=== PATIENT | male | born 1945 | race Caucasian/White ===

== ENCOUNTER 2019-04-07 20:56 | Outpatient (REF) | payer MEDICARE, SELFPAY ==
[2019-04-07 20:56] LABS: Abs Immature Grans 0.01 k/cumm (0.0-0.09); Absolute Basophil Count 0.05 k/cumm (0.0-0.2); Absolute Eosinophil Count 0.08 k/cumm (0.0-0.7); Absolute Lymphocyte Count 1.44 k/cumm (1.2-3.4); Absolute Monocyte Count 0.43 k/cumm (0.11-0.7); Absolute Neutrophil Count 2.25 k/cumm (1.2-6.7); Basophils % 1.2; Eosinophils % 1.9; HCT 44.9 % (40.0-50.0); Immature Grans % 0.2; Lymphocytes % 33.8; Mean Corp. HGB Concentration 33.4 g/dL (32.0-36.0); Mean Corpuscular Hemoglobin 31.9 pg (27.0-33.0); Mean Corpuscular Volume 95.5 fL (80-95); Mean Platelet Volume 10.2 fL (8.0-11.0); Monocytes % 10.1; Neutrophils % 52.8; Platelet Count 220 x1000/uL (130-400); RBC Distribution Width 13.4 % (11.8-14.1); White Blood Cell Count 4.26 k/cumm (4.4-10.8)
[2019-04-07 21:13] LABS: ALT 27 U/L (16-63); AST 18 U/L (15-37); Albumin 3.7 g/dL (3.4-5.0); Alkaline Phosphatase 36 U/L (46-116); Anion Gap 6.7 mmol/L (3-11); BUN 17 mg/dL (7-18); Bilirubin, Total 0.6 mg/dL (0.2-1.0); CO2 30.3 mmol/L (21.0-32.0); CREATININE 0.81 mg/dL (0.70-1.30); Calcium 8.7 mg/dL (8.5-10.1); Chloride 105 mmol/L (98-107); Glucose 118 mg/dL (70-100); Lipase 125 U/L (73-393); Potassium 4.2 mmol/L (3.5-5.1); Sodium 142 mmol/L (136-145); TSH (W/Ref FT4) 1.07 uIU/mL (0.36-3.74); Total Protein 6.4 g/dL (6.4-8.2)
== END 2019-04-07 21:16 ==
LOC: NCHCN 20:56
PROVIDERS: PCP Family Medicine; Visit Provider Family Medicine
DX: R19.7 Diarrhea, unspecified (principal)
CPT/HCPCS: 80053; 83690; 84443; 85025

== ENCOUNTER 2020-05-01 09:59 | Outpatient (REF) | payer MEDICARE, SELFPAY ==
[2020-05-02 18:02] LABS: PSA, Screening 3.8 ng/mL (0.0-6.5)
== END 2020-05-01 10:19 ==
LOC: NCHCN 09:59
PROVIDERS: PCP Family Medicine; Visit Provider Nurse Practitioner Community Health
DX: R31.9 Hematuria, unspecified (principal); Z12.5 Encounter for screening for malignant neoplasm of prostate
CPT/HCPCS: 84153; 87086

== ENCOUNTER 2020-07-09 22:42 | Outpatient (REF) | payer MEDICARE, SELFPAY ==
[2020-07-09 22:50] LABS: Anion Gap 5.2 mmol/L (3-11); BUN 17 mg/dL (7-18); CO2 30.8 mmol/L (21.0-32.0); CREATININE 0.91 mg/dL (0.70-1.30); Calcium 8.6 mg/dL (8.5-10.1); Chloride 104 mmol/L (98-107); Glucose 105 mg/dL (74-106); Potassium 4.4 mmol/L (3.5-5.1); Sodium 140 mmol/L (136-145)
== END 2020-07-09 23:02 ==
LOC: NCHCN 22:42
PROVIDERS: PCP Family Medicine; Visit Provider Family Medicine
DX: I10 Essential (primary) hypertension (principal)
CPT/HCPCS: 80048

== ENCOUNTER 2021-01-01 14:34 | Outpatient (REF) | payer MEDICARE, SELFPAY ==
[2021-01-01 21:48] LABS: Abs Immature Grans 0.01 10^3/uL (0.0-0.06); Absolute Basophil Count 0.06 10^3/uL (0.0-0.2); Absolute Lymphocyte Count 2.01 10^3/uL (1.2-3.4); Absolute Monocyte Count 0.55 10^3/uL (0.1-0.8); Absolute Neutrophil Count 3.63 10^3/uL (1.2-6.7); Basophils % 0.9; Eosinophils % 1.6; HCT 44.4 % (40.0-50.0); HGB 14.8 g/dL (13.5-17.5); Immature Grans % 0.2; Lymphocytes % 31.6; MCH 31.8 pg (27.0-33.0); MCHC 33.3 % (32.0-36.0); MCV 95.3 fL (80-95); MPV 10.1 fL (8.0-11.0); Monocytes % 8.6; Neutrophils % 57.1; Nucleated RBC 0 %; Platelet Count 206 10^3/uL (130-400); RBC 4.66 10^6/uL (4.36-5.78); RDW 12.7 % (11.8-14.1); RDW-SD 45.1 fL; WBC 6.36 10^3/uL (4.4-10.8)
[2021-01-01 22:07] LABS: ALT 27 U/L (16-63); AST 23 U/L (15-37); Albumin 3.9 g/dL (3.4-5.0); Alkaline Phosphatase 50 U/L (46-116); Anion Gap 7.2 mmol/L (3-11); BUN 19 mg/dL (7-18); Bilirubin, Total 0.7 mg/dL (0.2-1.0); C-Reactive Protein < 0.05 mg/dL (0.0-0.3); CO2 29.8 mmol/L (21.0-32.0); CREATININE 0.9 mg/dL (0.70-1.30); Calcium 8.8 mg/dL (8.5-10.1); Chloride 103 mmol/L (98-107); Glucose 129 mg/dL (74-106); Potassium 4.1 mmol/L (3.5-5.1); Sodium 140 mmol/L (136-145); TSH (W/Ref FT4) 1.12 uIU/mL (0.36-3.74); Total Protein 6.5 g/dL (6.4-8.2)
[2021-01-02 18:23] LABS: PSA, Screening 3.2 ng/mL (0.0-6.5)
[2021-01-03 09:42] LABS: Hepatitis C Ab w Rflx HCV PCR Negative (Negative)
[2021-01-03 09:54] LABS: HIV-1/2 Ag & Ab Screen Negative (Negative)
== END 2021-01-01 14:35 | disposition home or self-care (01) ==
LOC: NCHCN 14:34
PROVIDERS: PCP Family Medicine; Visit Provider Internal Medicine
DX: R63.4 Abnormal weight loss (principal); N50.9 Disorder of male genital organs, unspecified; D72.819 Decreased white blood cell count, unspecified; R97.20 Elevated prostate specific antigen [PSA]; Z12.5 Encounter for screening for malignant neoplasm of prostate; Z11.4 Encounter for screening for human immunodeficiency virus [HIV]; Z11.59 Encounter for screening for other viral diseases
CPT/HCPCS: 80053; 84153; 86803; 87389; 84443; 85025; 86140

== ENCOUNTER 2021-10-21 15:34 | Outpatient (REF) | payer MEDICARE, SELFPAY ==
--- NOTE | 2021-10-21 10:00 | SKI_PTH ---
PATIENT: Carlos Trimble LOC: NCN #:[id number] AGE/SX: 76/M ROOM: RE10/21/[address]: Nito Cary : 1945 BED: DIS: 10/21/2021 SPEC #: [id number] RECD: 10/22/21 12:15 STATUS: AGUEDA REQ #: [id number] YUNG: 10/21/21 10:[address]: Nito Cary DEPT: Surgical Specimen RECD BY: Layla Simms Tissues: 1 - SKIN BIOPSY(SHAVE/PUNCH) Procedures: SKIN LEVEL 4 Comments: [id number]
== END 2021-10-21 15:35 | disposition home or self-care (01) ==
LOC: NCHCN 15:34
PROVIDERS: PCP Family Medicine; Visit Provider Family Medicine
DX: L82.0 Inflamed seborrheic keratosis (principal)
CPT/HCPCS: 88305

== ENCOUNTER 2021-11-04 17:28 | Outpatient (REF) | payer MEDICARE, SELFPAY ==
[2021-11-05 08:46] LABS: ALT 25 U/L (16-63); AST 21 U/L (15-37); Alkaline Phosphatase 50 U/L (46-116); Anion Gap 6.8 mmol/L (3-11); BUN 20 mg/dL (7-18); Bilirubin, Total 0.6 mg/dL (0.2-1.0); CO2 28.2 mmol/L (21.0-32.0); CREATININE 0.8 mg/dL (0.70-1.30); Calcium 8.8 mg/dL (8.5-10.1); Chloride 102 mmol/L (98-107); Glucose 109 mg/dL (74-106); Potassium 4.4 mmol/L (3.5-5.1); Sodium 137 mmol/L (136-145); Total Protein 6.6 g/dL (6.4-8.2)
[2021-11-06 14:59] LABS: Calculated LDL 118 mg/dL (<100); Cholesterol 218 mg/dL (<200); HDL Cholesterol 87 mg/dL (40-60); Triglyceride 69 mg/dL (<150)
[2021-11-10 13:22] LABS: IgA 144 mg/dL (85-499); Interpretation (See Note); Tissue Transglutaminase IgA <1.2 U/mL (<4.0)
== END 2021-11-04 17:29 | disposition home or self-care (01) ==
LOC: NCHCN 17:28
PROVIDERS: PCP Family Medicine; Visit Provider Family Medicine
DX: I10 Essential (primary) hypertension (principal)
CPT/HCPCS: 80053; 80061; 82784; 83516

== ENCOUNTER 2023-07-08 15:01 | Outpatient (REF) | payer MEDICARE, SELFPAY ==
[2023-07-08 15:43] LABS: FREE T4 0.92 ng/dL (0.76-1.46); TSH 1.48 uIU/mL (0.36-3.74)
== END 2023-07-08 15:02 | disposition home or self-care (01) ==
LOC: NCHCN 15:01
PROVIDERS: PCP Family Medicine; Visit Provider Family Medicine
DX: K59.00 Constipation, unspecified (principal)
CPT/HCPCS: 84439; 84443

== ENCOUNTER → 2023-08-05 13:41 | Outpatient (BNVA) | payer MEDICARE, SELFPAY | PROVIDERS: PCP Family Medicine; Referring Provider Family Medicine; Visit Provider Urology | DX: R31.0 Gross hematuria (principal); N40.2 Nodular prostate without lower urinary tract symptoms; R97.20 Elevated prostate specific antigen [PSA] | CPT/HCPCS: 99205 ==

== ENCOUNTER 2023-09-09 06:25 | Day surgery (SDC) | payer MEDICARE, SELFPAY ==
[2023-09-09 06:35] VITALS: BP 141/85; PULSE 71; RESP 16; TEMP 36.5; O2SAT 100
--- NOTE | 2023-09-09 06:56 | W.PM.HP.N ---
Date of service: 09/09/23 Time of Service: 06:56 Assessment and Plan Assessment and plan (1) Hematuria: Status: Acute Assessment and plan: We will complete his hematuria workup with a cystoscopy and bilateral retrograde pyelogram. We will be prepared to do a transurethral resection of any abnormal area seen in the bladder or prostate. We will also be prepared to do ureteroscopy if there is any abnormality on retrograde pyelogram. Qualifiers: Hematuria type: gross Qualified Code(s): R31.0 - Gross hematuria History of Present Illness History of Present Illness Chief Complaint: Gross Hematuria Narrative: This is a 77-year-old gentleman who has a history of an elevated PSA. He has a reassuring multiparameter prostate MRI. He has never had prostate cancer diagnosed. He has had episodes of gross hematuria and passed a clot at one point. He had a CT of the abdomen and pelvis which showed no significant uropathology. He has had a history of kidney stones and ESWL in the past. We did a urine cytology on him which was concerning for high-grade urothelial cell carcinoma. He presents now for cystoscopy with retrograde pyelogram to complete his hematuria workup. We will be prepared to do transurethral resection of any visible bladder tumor. We will also be prepared to do ureteroscopy should any ureteral abnormality be found on retrograde pyelogram. Review of Systems Narrative: No fevers or chills No vision change or dysphasia No diabetes or thyroid dysfunction No shortness of breath, cough or hemoptysis No chest pain or palpitations GERD. No hepatitis, ulcers, jaundice No seizures, strokes or peripheral neuropathy No bleeding disorders or anemia PMR. No gout PFSH All Active Problems (Updated 08/06/23 @ 07:38 by Yassine Harris MD) Transient cerebral ischemia (Chronic) Constipation (Acute) Elevated BP without diagnosis of hypertension (Acute) Otitis (Chronic) Cough (Acute) Epigastric pain (Acute) GERD (gastroesophageal reflux disease) (Chronic) Nutritional anemia (Acute) Polymyalgia rheumatica (Acute) Hip pain (Acute) Hip stiffness (Acute) Shoulder pain (Acute) Dysphagia (Acute) Headache (Acute) Senile hyperkeratosis (Acute) Spinal stenosis (Acute) Otalgia of left ear (Acute) Cardiac arrhythmia (Acute) Diarrhea (Acute) Anxiety (Chronic) Disorder of skin (Acute) History of infectious disease (Acute) Abnormal weight loss (Acute) Essential hypertension (Acute) Prostate nodule (Acute) Hematuria (Acute) Low back pain (Acute) Abdominal pain (Acute) Disorder of right ear (Acute) Hearing loss in left ear (Acute) Leukopenia (Acute) Tinnitus, left ear (Acute) Elevated PSA (Acute) Erectile dysfunction (Acute) Kidney stone (Chronic) BPH (benign prostatic hyperplasia) (Chronic) Social History Smoking/Tobacco Use Status: Never Smoking risk assessment performed?: Yes Alcohol Intake: current Alcohol Intake frequency: 0-2 drinks per day Alcohol type: wine Substance use type: does not use Housing: house Do you feel safe at home: Yes Do you feel safe in your relationship?: Yes Meds Allergies and Home Medications Allergies Allergy/AdvReac Type Severity Reaction Status Date / Time No Known Allergies Allergy Verified 09/09/23 06:33 Home Medications Medication Instructions Recorded Confirmed Type amlodipine 5 mg tablet 5 mg PO DAILY 08/03/23 09/09/23 History aspirin 81 mg tablet,delayed 81 mg PO DAILY 08/03/23 09/08/23 History release benazepril 5 mg tablet 10 mg PO DAILY 08/03/23 09/09/23 History methocarbamol 500 mg tablet 500 mg PO QHS PRN 08/03/23 09/09/23 History sildenafil 50 mg tablet (Viagra) 50 mg PO DAILY PRN 08/03/23 09/09/23 History prednisone 2.5 mg tablet 2.5 mg PO DAILY 08/05/23 09/09/23 History Exam Const General: cooperative Neck Neck: supple Resp Auscultation: clear to auscultation bilaterally Cardio Rate: regular rate Rhythm: regular rhythm GI Palpation: soft and no masses Neuro General: patient alert, patient awake and patient oriented x3 Results Last Vital Signs Temp 36.5 C 09/09/23 06:35 Pulse 71 09/09/23 06:35 Resp 16 09/09/23 06:35 BP 141/85 H 09/09/23 06:35 Pulse Ox 100 09/09/23 06:35 Time Spent Time spent with Patient: <40 minutes Time was spent: other
--- NOTE | 2023-09-09 06:58 | W.ANESPRE ---
General Info Date of Service Date Performed: 09/09/23 Height: 5 ft 7.5 in Weight: 64.3 kg Body Mass Index (BMI): 21.9 Surgical Procedure: Operation Date: 09/09/23 07:40 Proposed Procedure Side Surgeon p Cystoscopy/Retrograde/Possible Ureteroscopy/Possible Transurethral Resection Bladder Tumor Bilateral Yassine Harris MD Meds Allergies and Home Medications Allergies Allergy/AdvReac Type Severity Reaction Status Date / Time No Known Allergies Allergy Verified 09/09/23 06:33 Home Medication Medication Instructions Recorded amlodipine 5 mg tablet 5 mg PO DAILY 08/03/23 aspirin 81 mg tablet,delayed 81 mg PO DAILY 08/03/23 release benazepril 5 mg tablet 10 mg PO DAILY 08/03/23 methocarbamol 500 mg tablet 500 mg PO QHS PRN 08/03/23 sildenafil 50 mg tablet (Viagra) 50 mg PO DAILY PRN 08/03/23 prednisone 2.5 mg tablet 2.5 mg PO DAILY 08/05/23 Current Visit Medications: Current Medications Generic Name Dose Route Start Last Admin Trade Name Freq PRN Reason Stop Dose Admin Ringer's Solution 1,000 mls @ 80 mls/hr 09/09/23 06:00 IV 10/08/23 23:59 INFUSION LAVINIA Cefazolin Sodium/Dextrose 2 gm in 50 mls @ 100 mls/hr 09/09/23 06:00 Ancef Duplex IVPB 09/09/23 16:00 PREOP LAVINIA IV Miscellaneous Supplies 1 each 09/09/23 06:00 Iv Access IV 10/08/23 23:59 DIRECTED LAVINIA Sodium Chloride 0 ml 09/09/23 06:00 Normal Saline Flush 10 Ml Syr IV 10/08/23 23:59 PRN PRN Sodium Chloride 0 ml 09/09/23 06:00 Normal Saline 10 Ml Vial IJ 10/08/23 23:59 DIRECTED PRN Sterile Water 0 ml 09/09/23 06:00 Water,Injection,Sterile 10 Ml Vial IJ 10/08/23 23:59 DIRECTED PRN PFSH Active Problems Active Problems: Problem Status Onset Code Transient cerebral ischemia G45.9 Constipation K59.00 Elevated BP without diagnosis of hypertension R03.0 Otitis H66.90 Cough R05.9 Epigastric pain R10.13 GERD (gastroesophageal reflux disease) K21.9 Nutritional anemia D53.9 Polymyalgia rheumatica M35.3 Hip pain M25.559 Hip stiffness M25.659 Shoulder pain M25.519 Dysphagia R13.10 Headache R51.9 Senile hyperkeratosis L57.0 Spinal stenosis M48.00 Otalgia of left ear H92.02 Cardiac arrhythmia I49.9 Diarrhea R19.7 Anxiety F41.9 Disorder of skin L98.9 History of infectious disease Z86.19 Abnormal weight loss R63.4 Essential hypertension I10 Prostate nodule N40.2 Hematuria R31.9 Low back pain M54.50 Abdominal pain R10.9 Disorder of right ear H93.91 Hearing loss in left ear H91.92 Leukopenia D72.819 Tinnitus, left ear H93.12 Elevated PSA R97.20 Erectile dysfunction N52.9 Kidney stone N20.0 BPH (benign prostatic hyperplasia) N40.0 Medical History Medical History Comments:: Reviewed previous TIA with Saurabh to proceed Tobacco Smoking/Tobacco Use Status: Never Alcohol Alcohol Intake: current Alcohol intake frequency: 0-2 drinks per day Alcohol type: wine Substance Use Substance use type: does not use Vital Signs and Lab Results Vital Signs Most Recent Vital Signs in EMR: Most Recent Vital Signs Temp Pulse Resp BP Pulse Ox 36.5 C 71 16 141/85 H 100 09/09/23 06:35 09/09/23 06:35 09/09/23 06:35 09/09/23 06:35 09/09/23 06:35 Lab Results Blood Type / Crossmatch: No Data to Display Complete Blood Count: No Data to Display Complete Metabolic Panel: No Data to Display Liver Function Panel: No Data to Display Coagulation Panel: No Data to Display Cardiac Panel: No Data to Display Arterial Blood Gas: No Data to Display Venous Blood Gas: No Data to Display Pancreas Panel: No Data to Display Thyroid Panel: No Data to Display Infectious Disease: No Data to Display Blood Cultures: No Data to Display Toxicology Panel: No Data to Display Anesthesia Assessment and Plan Anesthesia History Personal History: No History of Anesthesia Complications Family History: Family History Unknown Exercise Tolerance Exercise Tolerance: Metabolic Equivalents>4 Pertinent Negatives Pertinent Negatives: No Symptoms of GERD, No Major Cardiovascular Symptoms or Complaints and No Major Pulmonary Symptoms or Complaints Cardiac & Pulmonary Exam Cardiac Exam: Normal S1/S2 Heart Sounds Pulmonary Exam: Clear Bilateral Breath Sounds Implantable Cardiac Device Does patient have a Pacemaker or an ICD?: No Airway Exam Known Difficult Airway: No Mallampati Class: 2 Mouth Opening: Normal (> 3cm) Thyromental Distance: Greater than 3 cm Neck Range of Motion: Full ROM Neck Circumference: Normal Teeth Condition: Normal Dentition ASA Classification ASA Score: ASA 2 Emergency Case?: No NPO Status NPO Status: NPO Clears >2 hours, Solids >8 hours Anesthesia Plan Resuscitation Status: Full Code Anesthesia Technique: General Anesthesia Airway Planned: Natural Airway Monitors Used: Standard Monitors Preoperative Comments:: Recent potential TIA, evaluated by [facility] Neurology. EEG planned: results per patient were normal 2 month followup requested by Neurology: Per patient neuro felt was a focal seizure and will not be able to determine unless occurs again. Patient on prednisone taper: started in march and down to 2.5 mg/day
[2023-09-09] MEDS: Lactated Ringers 1,000 ML 80 ML IV (07:04)
[2023-09-09 07:27] VITALS: BMI 21.9
[2023-09-09] MEDS: ceFAZolin 2 GM/50 ML BAG IVPB (07:48)
[2023-09-09] MEDS: Lidocaine 2% Jelly 11 ML SYR (07:58)
[2023-09-09] MEDS: Omnipaque 300 MG/ML 50 ML BTL (07:59)
--- NOTE | 2023-09-09 08:13 | ROE_ITS ---
Date of service: 09/09/23 Time of Service: 08:13 Operative Note Operative Note DATE OF PROCEDURE: 09/09/23 PRE-OP DIAGNOSIS: Gross hematuria POST-OP DIAGNOSIS: same abnormal voided urine cytology PROCEDURE: cystoscopy with bilateral retrograde pyelogram SURGEON: Yassine Harris ANESTHESIA TYPE: Local By Surgeon and General:No Airway Refer to Anesthesia Record ESTIMATED BLOOD LOSS: 5 PATHOLOGY: none sent COMPLICATIONS: None Patient was transported to: same day Patient's condition: stable Implants: none Indications: This is a 77-year-old gentleman who has a history of gross hematuria. He has a history of kidney stones, any suspected that the hematuria was related to pass age of a stone. His evaluation has included a CT of the abdomen and pelvis with contrast. No significant uropathology was identified. He did have an abnormal voided urine cytology. He presents for cystoscopy with bilateral retrograde pyelogram and possible ureteroscopy, possible transurethral resection of any visible bladder tumor Findings: Heavily trabeculated bladder with multiple diverticuli and cellules No papillary or nodular bladder masses No ureteral or renal pelvic masses Procedure Description: The patient was given preoperative IV antibiotics and brought to the operating room on 09/09/2023. After successful induction of general anesthesia, he was placed in the dorsal lithotomy position. His genitalia was prepped and draped. 2% Xylocaine jelly was instilled into the urethra to act as a local anesthetic. A 22 Mongolian rigid cystoscope was passed through the urethra into the bladder. The urethra and bladder were inspected with a 30 degree lens. The pendulous, bulbar and membranous urethra's appeared normal with no strictures. The prostatic urethra showed lateral lobe enlargement. There was some hyperemia of the urethral mucosa just distal to the external sphincter. The bladder neck was entered and the bladder mucosa was inspected. Both ureteral orifices were visualized. The orifices appeared normal with no blood coming from either side. Each orifice was cannulated with a 5 Mongolian access catheter. Retrograde pyelograms were obtained by injecting Omnipaque through the access catheter under fluoroscopic guidance. The ureters were tortuous but there were no filling defects present on either side. Both sides drained promptly on a 5-minute drainage film. The bladder was then inspected with both the 30 and a 70 degree lens. No papillary or nodular lesions were identified. There were multiple bladder diverticuli and cellules present and the bladder was heavily trabeculated. Based on today's examination, the most likely source of his hematuria is the prostatic urethra and there were no mucosal-based abnormalities seen. We will plan to follow with urinalysis and symptom checks. The bladder was emptied and the cystoscope was withdrawn. The patient tolerated the procedure well with no complications.
--- NOTE | 2023-09-09 08:16 | W.PM.DSUDISC ---
Date of service: 09/09/23 Time of Service: 08:16 Discharge Plan Disposition Patient Disposition: Home Condition: Stable Discharge Details Reason For Visit: cystoscopy Attending Provider: Yassine Harris Primary Care Provider: Nito Cary Home Meds and New Rx's Prescriptions: No Action prednisone 2.5 mg tablet 2.5 mg PO DAILY methocarbamol 500 mg tablet 500 mg PO QHS PRN benazepril 5 mg tablet 10 mg PO DAILY amlodipine 5 mg tablet 5 mg PO DAILY sildenafil [Viagra] 50 mg tablet 50 mg PO DAILY PRN Rx Instructions: administer 30 minutes to 4 hours before activity aspirin 81 mg tablet,delayed release (DR/EC) 81 mg PO DAILY Discharge Instructions Additional Instructions: followup @ 3 months with PSA prior to visit (can be drawn at [facility] [place] [facility] if easier for patient) Activity:: Activity as Tolerated Shower/Bathe:: 24 hours Diet:: As Tolerated Discharge Orders Discharge Orders: Discharge Order (Routine); Ordered 09/09/23 Ordered By: Yassine Harris DS: Diagnosis Discharge Diagnosis (1) Hematuria: Status: Acute
[2023-09-09 08:20] VITALS: BP 99/65; PULSE 63; RESP 16; TEMP 36.3; O2SAT 98
--- NOTE | 2023-09-09 08:25 | DI.RAD_ITS ---
Exam(s) XR RETROGRADE IN OR EXAM: XR RETROGRADE IN OR CLINICAL HISTORY: Heamaturia and prostate nodule.. TECHNIQUE: 2D digital imaging was performed. COMPARISON: No exams were available for comparison FINDINGS: Fluoroscopy provided during urologic procedure. See procedure report for details Total fluoroscopy time 27.6 seconds IMPRESSION: Radiation exposure index/cumulative dose: edgar Olivera= 3.1605 mGy DATA REPOSITORY: RADIATION DOSE DELIVERED:
--- NOTE | 2023-09-09 08:46 | W.ANESPOSTOP ---
Postoperative Evaluation Date, Time and Location Date Performed: 09/09/23 Time Performed: 08:22 Patient Location: Day Surgery Unit Vital Signs Most Recent Imported Vital Signs: Most Recent Vital Signs Temp Pulse Resp BP Pulse Ox 36.3 C L 63 16 99/65 L 98 09/09/23 08:20 09/09/23 08:20 09/09/23 08:20 09/09/23 08:20 09/09/23 08:20 Pain Score Most Recent Pain Score: Most Recent Pain Score Pain Level 0 09/09/23 08:20 Assessment Mental Status: Awake (Alert & Oriented to Patient Baseline) Airway and Respiratory Function: Patent airway with normal (patient baseline) respiratory exam Cardiovascular Function: Hemodynamically Stable Hydration Status: Adequately Hydrated Nausea & Vomiting: No Nausea or Vomiting Pain: Pt. Denies Any Pain Peripheral Nerve Block: Patient did not receive a nerve block
[2023-09-09 08:57] VITALS: BP 115/68; PULSE 78; RESP 16; TEMP 36.6; O2SAT 98
[2023-09-09] MEDS: Phenazopyridine 200 MG TAB PO (09:19)
== END 2023-09-09 10:00 | disposition home or self-care (01) ==
PROVIDERS: PCP Family Medicine; Visit Provider Urology
PROC: 0TBB8ZZ Excision of Bladder, Via Natural or Artificial Opening Endoscopic (ICD-10-PCS; CPT 52005; principal; 2023-09-09 07:30)
DX: R31.0 Gross hematuria (principal); N32.89 Other specified disorders of bladder; Z87.442 Personal history of urinary calculi
CPT/HCPCS: 52005; 27447; 74420; J0690; J2704; Q9967

== ENCOUNTER 2024-08-03 13:48 | Outpatient (REF) | payer MEDICARE, SELFPAY ==
--- OUTSIDE RECORDS SUMMARY | 2024-08-03 13:50 | XMS_ITS ---
Author Organization Unknown Address [address] [place] [phone] Phone Care Team Providers Care Supervisor Maintenance And Custodians Name Role Phone DECLAN TA Registered Nurse Unavailable JENNIFER Mccullough Attending Unavailable ALFONSO KING Unavailable DEV Anderson Primary Unavailable UNLISTED PROVIDER - REQUESTED Xhandoff Un available Results MR LS SPINE WO CONTRAST - Co mpleted: 07/10/2022 15:36 LOINC: [place], [place] [address] PACS CURRENCY COUNTER REPORT Patient Name: BARBY FLORENTINO MRN: Sex: : Age: [id number] M 1945 [id number] Account: Accession: Admit: StayType: [id number] 07/10/2022 E/R Ordered: Order ID: Submitted: Ordering Provider: 07/10/2022 14:09 [id number] JAILENE DURHAM Completed: Technologist: Resulted: 07/10/2022 15:36 DRS 07/10/2022 16:06 Study Description: MR LS SPINE WO CONTRAST Study Reason: Back Pain TECHNIQUE: Multiplanar multisequence MRI of the Lumbar spine was performed. COMPARISON: There are no plain films available at time of this MRI interpretation. FINDINGS: 5 lumbar vertebrae are presumed. Conus medullaris is at normal level. There is no evidence of conus mass nor subjacent clumping of intrathecal nerve roots to suggest arachnoiditis. The distal thecal sac appears unremarkable.There is no evidence of Tarlov intrasacral cysts nor other significant findings within the sacral canal Bones:There are no fractures nor ominous osseous lesions in the lumbar vertebral bodies and visualized sacrum. With respect to the individual levels... T12-L1: Unremarkable L1-2: Normal disc height and signal. No disc herniation nor central canal stenosis.No foraminal stenosis L2-3: Normal disc height. Mild annular bulging but without a dominant disc herniation. Central canal dimensions[lower normal. No significant foraminal stenosis. No significant facet arthropathy. L3-4: There is mild decreased disc height on the right side of the disc space. There is symmetrical annular bulging without a dominant disc herniation. Mild-moderate central spinal canal stenosis due to annular bulging and short AP dimensions of the pedicles. No prominent foraminal stenosis. Mild facet joint degenerative changes. L4-5: This level exhibits significant asymmetric narrowing of the right side of the disc space with Modic type II subendplate fatty marrow changes on the right side also evident. There is broad annular bulging with moderate-severe central spinal canal stenosis. Annular bulging extends into the floor of the exiting neuroforamina bilaterally. There is significant foraminal stenosis on the right side and mild foraminal stenosis on the left side. Mild-moderate facet arthropathy. L5-S1: Mild uniform disc space narrowing. Posterior annular bulging which is subligamentous. Central canal dimensions are lower normal. No significant foraminal stenosis. Mild facet arthropathy. Soft tissues: paraspinal soft tissues appear unremarkable. IMPRESSION: 1. Multilevel findings as described above. The most significant findings appear to be at L4-5 level where there is moderate central spinal canal stenosis due to annular bulging and short AP dimensions of pedicles and some facet arthropathy. There is also foraminal stenosis bilaterally at this level, more so on the right side as there is asymmetric right-sided disc space height loss. 2. Other findings as above. Called by myself to ER provider. Report Digitally Signed by Barry Tom on 07/10/2022 04:06 PM EST 07/10/[email or web address] [facility] via fax Social History Type Status Start Date End Date Code Code Syst em Smoking History Never smoker (Never Smoked) 457840737 SNOMED CT Sex Male Vital Signs Vital Sign Value Unit [facility] Date/Time Recent/Initial? Code Code System Systolic Blood Pressure 135 mm[Hg] 07/10/2022 13:27 Initial 8480-6 [facility] Diastolic Blood Pressure 72 mm[Hg] 07/10/2022 13:27 Initial 8462-4 [facility] O2 Saturation 100 % 2021 13:27 Initial 00205- 5 [facility] Pulse 66.0 /min 07/10/2022 13:27 Initial 8867-4 LO[facility] Respiration 16 /min 07/10/20 13:27 Initial 9279-1 LO[facility] Temperature 36.8 Kimberly 98.2 F 07/10/20 13:27 Initial 8310-5 [facility] Medications Medication Start Date End Date Route Frequency Dose Code Code System Medication Instructions Home Meds Robaxin 500MG Oral Tablet 07/10/2022 06/23/2023 ORAL DAILY 1 TABLET RxNorm TAKE 1 TABLET ORAL DAILY every 6 hours for muscle spasms HYDROcodone bitartrate-ac etaminophen 5MG-325MG Oral Tablet 07/10/2022 06/23/2023 ORAL NEEDED EVERY 6 HOURS 1 TABLET 153195 RxNorm TAKE 1 TABLET ORAL NEEDED EVERY 6 HOURS-if taking hydrocodone , take 2 hours before or after. predniSONE 20MG Oral Tablet 07/10/2022 06/23/2023 ORAL DAILY 2 TABLET 365160 RxNorm TAKE 2 TABLET ORAL DAILY starting 07/11/2022 for the next 4 days. Aspirin 81MG Oral Tablet, Enteric Coated 06/24/2023 Unknown ORAL DAILY WITH FOOD 81 MILLIGRAMS [id number] RxNorm TAKE 81 MILLIGRAMS ORAL DAILY WITH FOOD Benazepril 10MG Oral Tablet 06/24/2023 Unknown ORAL DAILY 10 MILLIGRAMS 963279 RxNorm TAKE 10 MILLIGRAMS ORAL DAILY amLODIPine Besylate 5MG Oral Tablet 06/24/2023 Unknown ORAL DAILY 5 MILLIGRAMS [id number] RxNorm TAKE 5 MILLIGRAMS ORAL DAILY predniSONE 5MG Oral Tablet 06/24/2023 Unknown ORAL 5 MILLIGRAMS 228890 RxNorm TAKE 5 MILLIGRAMS ORAL Assessment You had the following problems:HYPERTENSIONWEAKNESS OF RIGHT HANDTRANSIENT ISCHEMIC ATTACK (DISORDER) Hospital Discharge Instructions Should you have any questions prior to discharge, please contact a member of your healthcare team. If you have left the hospital and have any questions, please contact your primary care physician. Reason For Referral No Data Found Problems Problem Start Date Resolved Date Status Code Code System HYPERTENSION active 66078067 SNOMED- CT WEAKNESS OF RIGHT HAND active 16209936380748109 SNOMED-CT TRANSIENT ISCHEMIC ATTACK (DISORDER) active 867938641 SNOMED-CT DEGENERATIVE DISC DISEASE 06/23/2023 resolved 06420462 SNOMED-CT POLYMYALGIA RHEUMATICA 06/23/2023 resolved 74277360 SNOMED-CT Allergies and Adverse Reactions Allergy Substance Reaction Severity Start Date Concern Status Co de Code System No Known Drug Allergies Active 228222277 SNOMED-CT Plan of Treatment EEG 07/14/2023 LAB DRAW 15MIN 05/20/2023 MRA HEAD W/O CONTRAST 09/16/2022 MRI C SPINE W/O CONTRAST 09/16/2022 MRI BRAIN W/O CONTRAST 09/16/2022 Encounters Encounter Diagnosis Start Date Code Code Sys tem Spinal stenosis, lumbar prashanth on without neurogenic claudication 07/10/2022 SNOMED-CT Personal Care Team Section Performer Name Performer Role Active Date Inactive Da wagner
--- OUTSIDE RECORDS SUMMARY | 2024-08-03 13:50 | XMS_ITS ---
Author Organization Unknown Address [address] [place] [phone] Phone Care Team Providers Care Horseshoer Name Role Phone LALO Kim Attending Unavailable DEV Anderson Primary Unavailable Social History Type Status Start Date End Date Code Code Syst em Smoking History Never smoker (Never Smoked) 364271332 SNOMED CT Sex Male Medications Medication Start Date End Date Route Frequency Dose Code Code System Medication Instructions Home Meds Robaxin 500MG Oral Tablet 07/10/2022 06/23/2023 ORAL DAILY 1 TABLET RxNorm TAKE 1 TABLET ORAL DAILY every 6 hours for muscle spasms HYDROcodone bitartrate-ac etaminophen 5MG-325MG Oral Tablet 07/10/2022 06/23/2023 ORAL NEEDED EVERY 6 HOURS 1 TABLET [id number] RxNorm TAKE 1 TABLET ORAL NEEDED EVERY 6 HOURS-if taking hydrocodone , take 2 hours before or after. predniSONE 20MG Oral Tablet 07/10/2022 06/23/2023 ORAL DAILY 2 TABLET 132406 RxNorm TAKE 2 TABLET ORAL DAILY starting 07/11/2022 for the next 4 days. Aspirin 81MG Oral Tablet, Enteric Coated 06/24/2023 Unknown ORAL DAILY WITH FOOD 81 MILLIGRAMS 326125 RxNorm TAKE 81 MILLIGRAMS ORAL DAILY WITH FOOD Benazepril 10MG Oral Tablet 06/24/2023 Unknown ORAL DAILY 10 MILLIGRAMS 364746 RxNorm TAKE 10 MILLIGRAMS ORAL DAILY amLODIPine Besylate 5MG Oral Tablet 06/24/2023 Unknown ORAL DAILY 5 MILLIGRAMS 928633 RxNorm TAKE 5 MILLIGRAMS ORAL DAILY predniSONE 5MG Oral Tablet 06/24/2023 Unknown ORAL 5 MILLIGRAMS 291199 RxNorm TAKE 5 MILLIGRAMS ORAL Assessment You [...] Date Status Code Code System HYPERTENSION active 43870771 SNOMED- CT WEAKNESS OF RIGHT HAND active 56681169585466910 SNOMED-CT TRANSIENT ISCHEMIC ATTACK (DISORDER) active 980080467 SNOMED-CT DEGENERATIVE DISC DISEASE 06/23/2023 resolved 15500059 SNOMED-CT POLYMYALGIA RHEUMATICA 06/23/2023 resolved 21966376 SNOMED-CT Allergies and Adverse Reactions Allergy Substance Reaction Severity Start Date Concern Status Co de Code System No Known Drug Allergies Active 907471098 SNOMED-CT Plan of Treatment EEG 07/14/2023 LAB DRAW 15MIN 05/20/2023 MRA HEAD W/O CONTRAST 09/16/2022 MRI C SPINE W/O CONTRAST 09/16/2022 MRI BRAIN W/O CONTRAST 09/16/2022 Encounters Encounter Diagnosis Start Date Code Code Sys tem Supraventricular tachycardia 01/19/2022 SNOMED-CT Personal Care Team Section Performer Name Performer Role Active Date Inactive Da te
--- OUTSIDE RECORDS SUMMARY | 2024-08-03 13:51 | XMS_ITS ---
Author Organization Unknown Address [address] [place] [address] [phone] Phone Care Team Providers Care Cereal Miller Name Role Phone DEV Anderson Attending Unavailable Results MR ANGIOGRAPHY HEAD AND NECK WO CONTRST* - Completed: 09/16/2022 15:43 LOINC: [facility] [place], [place] [address] PACS MVA OPERATOR REPORT Patient Name: BARBY FLORENTINO MRN: Sex: : Age: [id number] M 1945 [id number] Account: Accession: Admit: StayType: [id number] 09/16/2022 O/P Ordered: Order ID: Submitted: Ordering Provider: 09/16/2022 13:57 [id number] HERMES BLANC Completed: Technologist: Resulted: 09/16/2022 15:43 DRS 09/16/2022 17:48 Study Description: MR ANGIOGRAPHY HEAD AND NECK WO CONTRST* Study Reason: HEADACHES, NECK PAIN TECHNIQUE: Performed on 1.5 Tressa unit with Time of Flight sequence CONTRAST: None COMPARISON: No exams were available for comparison FINDINGS: MRA brain: Anterior circulation: Both internal carotid arteries are patent at the skull base-carotid canal and cavernous sinuses. The intracavernous aspects of the internal carotid arteries are patent bilaterally. Supraclinoid aspects are patent bilaterally. A1 segments are patent as are the anterior cerebral arteries. There is no evidence of aneurysm at the level of the anterior communicating artery. Both middle cerebral arteries are patent. No significant stenosis nor aneurysms in these vessels. No intraluminal thrombus. Posterior circulation: Basilar artery is formed but both vertebral arteries at the skull base. Basilar artery ascends in the midline with normal luminal diameter. Distally gives off superior cerebellar arteries and above this level terminates as patent bilateral posterior cerebral arteries. There is a posterior communicating artery noted on the left side of the benton of Harris which adds flow to the left posterior cerebral artery. Luminal diameter of this left-sided posterior communicating artery is 1.5 mm There is no aneurysm the tip of the basilar artery nor elsewhere in the benton of Harris. MRA neck: Common carotid arteries ascend with normal luminal diameters. There is no significant stenosis at the carotid bifurcations and proximal internal carotid arteries. Both internal carotid arteries exhibit normal diameters and known tortuosity in the upper neck. Posterior circulation: Vertebral arteries are patent and originate in conventional fashion off of the subclavian arteries. Both vertebral arteries are patent in the foramen transversarium with no evidence of intraluminal thrombus nor dissection. At the skull base both vertebral arteries contribute to the formation of the basilar artery. IMPRESSION: 1. Patent carotid arteries in the neck. No significant stenosis of the carotid arteries in the neck. 2. Patent vertebral arteries. Both vertebral arteries contribute to the formation of the basilar artery at the skull base. 3. Patent intracranial artery, as described above. No aneurysms. Report Digitally Signed by Barry Tom on 09/16/2022 05:48 PM EST MR BRAIN AND CSPINE WO CONTR AST - Completed: 09/16/2022 15:07 LOINC: [No content] Social History Type Status Start Date End Date Code Code Syst em Smoking History Never smoker (Never Smoked) 680183039 SNOMED CT Sex Male Medications Medication Start Date End Date Route Frequency Dose Code Code System Medication Instructions Home Meds Robaxin 500MG Oral Tablet 07/10/2022 06/23/2023 ORAL DAILY 1 TABLET RxNorm TAKE 1 TABLET ORAL DAILY every 6 hours for muscle spasms HYDROcodone bitartrate-ac etaminophen 5MG-325MG Oral Tablet 07/10/2022 06/23/2023 ORAL NEEDED EVERY 6 HOURS 1 TABLET [id number] RxNorm TAKE 1 TABLET ORAL NEEDED EVERY 6 HOURS-if taking hydrocodone , take 2 hours before or after. predniSONE 20MG Oral Tablet 07/10/2022 06/23/2023 ORAL DAILY 2 TABLET 187360 RxNorm TAKE 2 TABLET ORAL DAILY starting 07/11/2022 for the next 4 days. Aspirin 81MG Oral Tablet, Enteric Coated 06/24/2023 Unknown ORAL DAILY WITH FOOD 81 MILLIGRAMS 402054 RxNorm TAKE 81 MILLIGRAMS ORAL DAILY WITH FOOD Benazepril 10MG Oral Tablet 06/24/2023 Unknown ORAL DAILY 10 MILLIGRAMS 071013 RxNorm TAKE 10 MILLIGRAMS ORAL DAILY amLODIPine Besylate 5MG Oral Tablet 06/24/2023 Unknown ORAL DAILY 5 MILLIGRAMS 376095 RxNorm TAKE 5 MILLIGRAMS ORAL DAILY predniSONE 5MG Oral Tablet 06/24/2023 Unknown ORAL 5 MILLIGRAMS 835235 RxNorm TAKE 5 MILLIGRAMS ORAL Assessment You [...] Date Status Code Code System HYPERTENSION active 29921670 SNOMED- CT WEAKNESS OF RIGHT HAND active 50948673191990627 SNOMED-CT TRANSIENT ISCHEMIC ATTACK (DISORDER) active 472245395 SNOMED-CT DEGENERATIVE DISC DISEASE 06/23/2023 resolved 10183624 SNOMED-CT POLYMYALGIA RHEUMATICA 06/23/2023 resolved 16443041 SNOMED-CT Allergies and Adverse Reactions Allergy Substance Reaction Severity Start Date Concern Status Co de Code System No Known Drug Allergies Active 259876539 SNOMED-CT Plan of Treatment EEG 07/14/2023 LAB DRAW 15MIN 05/20/2023 MRA HEAD W/O CONTRAST 09/16/2022 MRI C SPINE W/O CONTRAST 09/16/2022 MRI BRAIN W/O CONTRAST 09/16/2022 Encounters Encounter Diagnosis Start Date Code Code Sys tem Spinal stenosis, cervical region 09/16/2022 SNOMED-CT Personal Care Team Section Performer Name Performer Role Active Date Inactive Da te
--- OUTSIDE RECORDS SUMMARY | 2024-08-03 13:51 | XMS_ITS ---
Author Organization Unknown Address [address] [place] [address] [phone] Phone Care Team Providers Care Real Estate Executive Assistant Name Role Phone DEV Anderson Attending Unavailable Social History Type Status Start Date End Date Code Code Syst em Smoking History Never smoker (Never Smoked) 391046299 SNOMED CT Sex Male Medications Medication Start Date End Date Route Frequency Dose Code Code System Medication Instructions Home Meds Robaxin 500MG Oral Tablet 07/10/2022 06/23/2023 ORAL DAILY 1 TABLET RxNorm TAKE 1 TABLET ORAL DAILY every 6 hours for muscle spasms HYDROcodone bitartrate-ac etaminophen 5MG-325MG Oral Tablet 07/10/2022 06/23/2023 ORAL NEEDED EVERY 6 HOURS 1 TABLET 996677 RxNorm TAKE 1 TABLET ORAL NEEDED EVERY 6 HOURS-if taking hydrocodone , take 2 hours before or after. predniSONE 20MG Oral Tablet 07/10/2022 06/23/2023 ORAL DAILY 2 TABLET 464058 RxNorm TAKE 2 TABLET ORAL DAILY starting 07/11/2022 for the next 4 days. Aspirin 81MG Oral Tablet, Enteric Coated 06/24/2023 Unknown ORAL DAILY WITH FOOD 81 MILLIGRAMS 816818 RxNorm TAKE 81 MILLIGRAMS ORAL DAILY WITH FOOD Benazepril 10MG Oral Tablet 06/24/2023 Unknown ORAL DAILY 10 MILLIGRAMS 618146 RxNorm TAKE 10 MILLIGRAMS ORAL DAILY amLODIPine Besylate 5MG Oral Tablet 06/24/2023 Unknown ORAL DAILY 5 MILLIGRAMS 168089 RxNorm TAKE 5 MILLIGRAMS ORAL DAILY predniSONE 5MG Oral Tablet 06/24/2023 Unknown ORAL 5 MILLIGRAMS 851079 RxNorm TAKE 5 MILLIGRAMS ORAL Assessment You [...] Date Status Code Code System HYPERTENSION active 97177653 SNOMED- CT WEAKNESS OF RIGHT HAND active 84018985111133527 SNOMED-CT TRANSIENT ISCHEMIC ATTACK (DISORDER) active 820967947 SNOMED-CT DEGENERATIVE DISC DISEASE 06/23/2023 resolved 66683700 SNOMED-CT POLYMYALGIA RHEUMATICA 06/23/2023 resolved 88845499 SNOMED-CT Allergies and Adverse Reactions Allergy Substance Reaction Severity Start Date Concern Status Co de Code System No Known Drug Allergies Active 096741183 SNOMED-CT Plan of Treatment EEG 07/14/2023 LAB DRAW 15MIN 05/20/2023 MRA HEAD W/O CONTRAST 09/16/2022 MRI C SPINE W/O CONTRAST 09/16/2022 MRI BRAIN W/O CONTRAST 09/16/2022 Encounters Encounter Diagnosis Start Date Code Code Sys tem Other low back pain 09/08/2022 SNOMED-C T Personal Care Team Section Performer Name Performer Role Active Date Inactive Da te
--- OUTSIDE RECORDS SUMMARY | 2024-08-03 13:51 | XMS_ITS ---
Author Organization Unknown Address [address] [place] [address] [phone] Phone Care Team Providers Care Cutter Grinder Name Role Phone DEV Anderson Attending Unavailable Results PSA DIAG PROSTATE SPECIFIC A NTIGEN * - Collect Date/Time: 01/12/2023 08:50 [facility] ID: [id number] [address] [place] [address], [address] LOINC: 2857-1 Test Value Unit Reference Range Code Code System Flag PSA 10.23 ng/mL L=0.00 H=6.50 2857-1 LOINC H Social History Type Status Start Date End Date Code Code Syst em Smoking History Never smoker (Never Smoked) 895453867 SNOMED CT Sex Male Medications Medication Start Date End Date Route Frequency Dose Code Code System Medication Instructions Home Meds Robaxin 500MG Oral Tablet 07/10/2022 06/23/2023 ORAL DAILY 1 TABLET RxNorm TAKE 1 TABLET ORAL DAILY every 6 hours for muscle spasms HYDROcodone bitartrate-ac etaminophen 5MG-325MG Oral Tablet 07/10/2022 06/23/2023 ORAL NEEDED EVERY 6 HOURS 1 TABLET 652987 RxNorm TAKE 1 TABLET ORAL NEEDED EVERY 6 HOURS-if taking hydrocodone , take 2 hours before or after. predniSONE 20MG Oral Tablet 07/10/2022 06/23/2023 ORAL DAILY 2 TABLET 643762 RxNorm TAKE 2 TABLET ORAL DAILY starting 07/11/2022 for the next 4 days. Aspirin 81MG Oral Tablet, Enteric Coated 06/24/2023 Unknown ORAL DAILY WITH FOOD 81 MILLIGRAMS 150935 RxNorm TAKE 81 MILLIGRAMS ORAL DAILY WITH FOOD Benazepril 10MG Oral Tablet 06/24/2023 Unknown ORAL DAILY 10 MILLIGRAMS 192271 RxNorm TAKE 10 MILLIGRAMS ORAL DAILY amLODIPine Besylate 5MG Oral Tablet 06/24/2023 Unknown ORAL DAILY 5 MILLIGRAMS 097229 RxNorm TAKE 5 MILLIGRAMS ORAL DAILY predniSONE 5MG Oral Tablet 06/24/2023 Unknown ORAL 5 MILLIGRAMS 511039 RxNorm TAKE 5 MILLIGRAMS ORAL Assessment You [...] Date Status Code Code System HYPERTENSION active 55011456 SNOMED- CT WEAKNESS OF RIGHT HAND active 92421508490841020 SNOMED-CT TRANSIENT ISCHEMIC ATTACK (DISORDER) active 457089153 SNOMED-CT DEGENERATIVE DISC DISEASE 06/23/2023 resolved 84772823 SNOMED-CT POLYMYALGIA RHEUMATICA 06/23/2023 resolved 56532219 SNOMED-CT Allergies and Adverse Reactions Allergy Substance Reaction Severity Start Date Concern Status Co de Code System No Known Drug Allergies Active 612719311 SNOMED-CT Plan of Treatment EEG 07/14/2023 LAB DRAW 15MIN 05/20/2023 MRA HEAD W/O CONTRAST 09/16/2022 MRI C SPINE W/O CONTRAST 09/16/2022 MRI BRAIN W/O CONTRAST 09/16/2022 Encounters Encounter Diagnosis Start Date Code Code Sys tem Raised prostate specific antigen 01/12/2023 47163241 5 SNOMED-CT Personal Care Team Section Performer Name Performer Role Active Date Inactive Da wagner
--- OUTSIDE RECORDS SUMMARY | 2024-08-03 13:51 | XMS_ITS ---
Author Organization Unknown Address [address] [place] [address] [phone] Phone Care Team Providers Care Labor Relations Director Name Role Phone DEV Anderson Attending Unavailable Results CPK SERUM TOTAL* - Collect D ate/Time: 10/28/2022 15:38 ID: [id number] [address] [place] [address], [address] LOINC: 2157-6 Test Value Unit Reference Range Code Code System Flag CPK 76 U/L L=0 H=150 2157-6 LOINC Specimen seq. OTHER HEMOGRAM + PLATELET WO DIFF - Collect Date/Time: 10/28/2022 15:38 ID: [id number] [address] [place] [address], [phone] LOINC: 75164-1 Test Value Unit Reference Range Code Code System Flag WBC 5.18 th/cmm L=5.00 H=10.00 6690-2 LOINC NRBC % 0.0 % L=0.0 H=0.0 94894-4 LOINC NRBC abs count 0.0 mil/cmm L=0.0 H=0.0 70129-5 LOINC RBC 4.45 mil/cmm L=4.30 H=6.20 789-8 LOINC HEMOGLOBIN 13.9 gm/dL L=13.0 H=17.0 718-7 LOINC HEMATOCRIT 43 % L=45 H=52 4544-3 LOINC L MCV 96 fL L=82 H=92 787-2 LOINC H MCH 31.2 pg L=27.0 H=31.0 785-6 LOINC H MCHC 32.5 % L=32.0 H=36.0 786-4 LOINC RDW-SD 44.5 fL L=39.0 H=49.0 788-0 LOINC PLATELET COUNT 295 th/cmm L=150 H=450 777-3 LOINC SED RATE* - Collect Date/Zeeshan e: 10/28/2022 15:38 ID: [id number] [address] [place] [address], [address] LOINC: 4537-7 Test Value Unit Reference Range Code Code System Flag SED. RATE 10 mm/hr L=0 H=20 4537-7 LOINC PSA DIAG PROSTATE SPECIFIC A NTIGEN * - Collect Date/Time: 10/28/2022 15:38 ID: [id number] [address] [place] [address], [address] LOINC: 2857-1 Test Value Unit Reference Range Code Code System Flag PSA 6.98 ng/mL L=0.00 H=6.50 2857-1 LOINC H C REACTIVE PROTEIN HIGH SENS ITIVITY* - Collect Date/Time: 10/28/2022 15:38 ID: [id number] [address] [place] [address], [address] LOINC: 97787-4 Test Value Unit Reference Range Code Code System Flag CRP-HIGH SENS. 12.78 mg/L L=0.00 H=3.00 71586-0 LOINC H CRP-HIGH SENS 1.28 mg/dL L=0.00 H=0.30 90465-8 LOINC H BASIC METABOLIC PANEL (BMP) - Collect Date/Time: 10/28/2022 15:38 ID: [id number] [address] [place] [address], [address] LOINC: 33599-9 Test Value Unit Reference Range Code Code System Flag GLUCOSE 105 mg/dL L=70 H=116 2345-7 LOINC BUN 19 mg/dL L=6 H=25 3094-0 LOINC CREATININE 0.78 mg/dL L=0.67 H=1.17 2160-0 LOINC SODIUM SERUM 139 mmol/L L=136 H=145 2951-2 LOINC POTASSIUM SERUM 4.4 mmol/L L=3.4 H=5.2 2823-3 LOINC CHLORIDE SERUM 102 mmol/L L=96 H=110 2075-0 LOINC CARBON DIOXIDE (CO2) 32 mmol/L L=22 H=34 2028-9 INC ANION GAP 5.5 mmol/L 28539-1 [facility] CALCIUM SERUM 9.3 mg/dL L=8.2 H=10.2 23124-0 INC AGE 77 years eGFR (non-Afr.Amer.) 97 mL/min 78319-3 LOINC eGFR (Afr-French) 117 mL/min 54642-6 [facility] Social History Type Status Start Date End Date Code Code Syst em Smoking History Never smoker (Never Smoked) 270133708 SNOMED CT Sex Male Medications Medication Start Date End Date Route Frequency Dose Code Code System Medication Instructions Home Meds Robaxin 500MG Oral Tablet 07/10/2022 06/23/2023 ORAL DAILY 1 TABLET RxNorm TAKE 1 TABLET ORAL DAILY every 6 hours for muscle spasms HYDROcodone bitartrate-ac etaminophen 5MG-325MG Oral Tablet 07/10/2022 06/23/2023 ORAL NEEDED EVERY 6 HOURS 1 TABLET 648262 RxNorm TAKE 1 TABLET ORAL NEEDED EVERY 6 HOURS-if taking hydrocodone , take 2 hours before or after. predniSONE 20MG Oral Tablet 07/10/2022 06/23/2023 ORAL DAILY 2 TABLET 070693 RxNorm TAKE 2 TABLET ORAL DAILY starting 07/11/2022 for the next 4 days. Aspirin 81MG Oral Tablet, Enteric Coated 06/24/2023 Unknown ORAL DAILY WITH FOOD 81 MILLIGRAMS 870798 RxNorm TAKE 81 MILLIGRAMS ORAL DAILY WITH FOOD Benazepril 10MG Oral Tablet 06/24/2023 Unknown ORAL DAILY 10 MILLIGRAMS 952274 RxNorm TAKE 10 MILLIGRAMS ORAL DAILY amLODIPine Besylate 5MG Oral Tablet 06/24/2023 Unknown ORAL DAILY 5 MILLIGRAMS 255382 RxNorm TAKE 5 MILLIGRAMS ORAL DAILY predniSONE 5MG Oral Tablet 06/24/2023 Unknown ORAL 5 MILLIGRAMS 063231 RxNorm TAKE 5 MILLIGRAMS ORAL Assessment You [...] Date Status Code Code System HYPERTENSION active 54508698 SNOMED- CT WEAKNESS OF RIGHT HAND active 63460627645716741 SNOMED-CT TRANSIENT ISCHEMIC ATTACK (DISORDER) active 015789222 SNOMED-CT DEGENERATIVE DISC DISEASE 06/23/2023 resolved 91027397 SNOMED-CT POLYMYALGIA RHEUMATICA 06/23/2023 resolved 30925159 SNOMED-CT Allergies and Adverse Reactions Allergy Substance Reaction Severity Start Date Concern Status Co de Code System No Known Drug Allergies Active 103204516 SNOMED-CT Plan of Treatment EEG 07/14/2023 LAB DRAW 15MIN 05/20/2023 MRA HEAD W/O CONTRAST 09/16/2022 MRI C SPINE W/O CONTRAST 09/16/2022 MRI BRAIN W/O CONTRAST 09/16/2022 Encounters Encounter Diagnosis Start Date Code Code Sys tem Pain in unspecified shoulder 10/28/2022 SNOMED-CT Personal Care Team Section Performer Name Performer Role Active Date Inactive Octavio edward
--- OUTSIDE RECORDS SUMMARY | 2024-08-03 13:52 | XMS_ITS ---
Author Organization Unknown Address [address] [place] [address] [phone] Phone Care Team Providers Care Mold Machine Operator Name Role Phone BRYAN PAEZ Registered Nurse Unavailable MARVA Perez Attending Unavailable [facility] Unavailable DEV Anderson Primary Unavailable UNLISTED PROVIDER - REQUESTED Xhandoff Un available Results URINALYSIS WITH REFLEX CULT IF POSITIVE* - Collect Date/Time: 06/27/2023 13:30 [facility] ID: [id number] [address] [place] [address], [address] LOINC: 88405-9 Test Value Unit Reference Range Code Code System Flag COLLECTION MODE: CLEAN CATCH 66750-7 LOINC Color STRAW yellow 5778-6 LOINC Appearance CLEAR clear 5767-9 LOINC Glucose urine NEGATIVE negative mg/dl 04744-4 LOINC Bilirubin NEGATIVE negative 5770-3 LOINC Ketones NEGATIVE negative mg/dl 2514-8 LOINC Spec gravity 1.010 1.003 - 1.030 5811-5 LOINC pH urine 7.0 5.0 - 7.0 2756-5 LOINC Protein NEGATIVE negative mg/dl 32853-6 LOINC Urobilinogen 0.2 <or= 1 EU/dl 10532-0 LOINC Nitrite. NEGATIVE negative 5802-4 LOINC Blood NEGATIVE negative 5794-3 LOINC Leukocytes. NEGATIVE negative MICROSCOPIC NOT INDICAT LIPASE* NEW - Collect Date/T esteban: 06/27/2023 13:05 [facility] ID: [id number] [address] [place] [address], [phone] LOINC: 3040-3 Test Value Unit Reference Range Code Code System Flag LIPASE. 44 U/L L=16 H=77 COMPREHENSIVE METABOLIC PANE L (CMP) - Collect Date/Time: 06/27/2023 13:05 [facility] ID: [id number] [address] [place], [place], [address] LOINC: 82947-3 Test Value Unit Reference Range Code Code System Flag GLUCOSE 123 mg/dL L=70 H=116 2345-7 LOINC H BUN 16 mg/dL L=6 H=25 3094-0 LOINC CREATININE 0.79 mg/dL L=0.67 H=1.17 2160-0 LOINC SODIUM SERUM 138 mmol/L L=136 H=145 2951-2 LOINC POTASSIUM SERUM 3.8 mmol/L L=3.4 H=5.2 2823-3 LOINC CHLORIDE SERUM 101 mmol/L L=96 H=110 2075-0 LOINC CARBON DIOXIDE (CO2) 31 mmol/L L=22 H=34 2028-9 LOINC ANION GAP 5.8 mmol/L 22598-5 LOINC CALCIUM SERUM 9.0 mg/dL L=8.2 H=10.2 90810-6 LOINC BILIRUBIN TOTAL 0.5 mg/dL L=0.0 H=1.3 1975-2 LOINC ALK. PHOS. 48 U/L L=46 H=116 6768-6 LOINC SGOT (AST) 19 U/L L=15 H=37 1920-8 LOINC SGPT (ALT) 20 U/L L=12 H=78 1742-6 LOINC TOTAL PROTEIN 6.7 gm/dL L=6.0 H=8.0 2885-2 LOINC ALBUMIN 3.7 gm/dL L=3.4 H=5.0 1751-7 LOINC AGE 77 years eGFR (non-Afr.Amer.) 96 mL/min 62717-7 LOINC eGFR (Afr-Serbian) 116 mL/min 35683-6 LOINC CBC W/ DIFFERENTIAL* - Colle ct Date/Time: 06/27/2023 13:05 [facility] ID: [id number] [address] [place], [place], [address] LOINC: 13211-4 Test Value Unit Reference Range Code Code System Flag WBC 6.44 th/cmm L=5.00 H=10.00 6690-2 LOINC NEUT % 73.4 % L=40.0 H=80.0 LYMPH % 17.2 % L=10.0 H=50.0 MONO % 7.8 % L=2.0 H=12.0 77380-8 LOINC EOS % 0.6 % L=0.0 H=8.0 BASO % 0.8 % L=0.0 H=3.0 IG % 0.2 % L=0.0 H=1.1 2514-8 LOINC NRBC % 0.0 % L=0.0 H=0.0 61634-0 LOINC NEUT abs count 4.7 th/cmm L=1.6 H=8.4 751-8 LOINC LYMPH abs count 1.1 th/cmm L=1.5 H=4.0 731-0 LOINC L MONO abs count 0.5 th/cmm L=0.2 H=1.0 742-7 LOINC EOS abs count 0.0 th/cmm L=0.0 H=0.5 711-2 LOINC BASO abs count 0.1 th/cmm L=0.0 H=0.2 704-7 LOINC IG abs count 0.0 th/cmm L=0.0 H=0.1 86658-1 LOINC NRBC abs count 0.0 mil/cmm L=0.0 H=0.0 53911-5 LOINC RBC 4.79 mil/cmm L=4.30 H=6.20 789-8 LOINC HEMOGLOBIN 15.1 gm/dL L=13.0 H=17.0 718-7 LOINC HEMATOCRIT 46 % L=45 H=52 4544-3 LOINC MCV 96 fL L=82 H=92 787-2 LOINC H MCH 31.5 pg L=27.0 H=31.0 785-6 LOINC H MCHC 33.0 % L=32.0 H=36.0 786-4 LOINC RDW-SD 46.5 fL L=39.0 H=49.0 788-0 [facility] PL[facility] COUNT 247 th/cmm L=150 H=450 777-[address] ABD PELVIS W IV CONTRAST ONLY - Completed: 06/27/2023 14:21 LOINC: [facility] RADIOLOGY [place], [place] [address] PACS RECEIVER DISPATCHER REPORT Patient Name: BARBY FLORENTINO MRN: Sex: : Age: [id number] M 1945 77 Account: Accession: Admit: StayType: [id number] 06/27/2023 E/R Ordered: Order ID: Submitted: Ordering Provider: 06/27/2023 12:48 [id number] JAYE NARVAEZ Completed: Technologist: Resulted: 06/27/2023 14:21 BM 06/27/2023 15:47 Study Description: CT ABD PELVIS W IV CONTRAST ONLY Reason for Study: Abdominal Pain Imaging Protocol: Axial computed tomography images with coronal and sagittal reformatted images were created and reviewed. Contrast Material: Intravenous: Omnipaque 350 Contrast volume: 100 mL Comparison: Abdomen ultrasound 25 February 2019 FINDINGS: Lung Bases: Normal where visualized. Liver: Normal density. No suspicious measurable mass. Gallbladder and Biliary Tract: No radiodense calculus.No biliary dilation. Pancreas: Normal density, no abnormal calcifications or inflammatory process. Spleen: Normal. Adrenals: No masses seen. Kidneys: Normal size, contour and axis. No radiodense stones. No obstructive uropathy. No suspicious masses seen. Abdominal Aorta: Abdominal portion non-dilated. Bowel: Large quantity of stool. No obstruction. No bowel wall thickening. Appendix normal. Peritoneal Cavity: No ascites or focal collection. No mesenteric inflammatory response. No free air. Lymph Nodes: Within normal limits. Bones: Degenerative changes in the hips and spine. Bones appear osteoporotic. Soft Tissues: Unremarkable. Bladder: Symmetric distention. No gross wall thickening. Reproductive Organs: Markedly enlarged prostate. IMPRESSION: No acute abnormality is identified in the abdomen and pelvis. Large quantity of stool consistent with constipation. Radiation Optimization: All CT scans at this facility use at least one of these dose optimization techniques: automated exposure control; mA and/or kV adjustment per patient size (includes targeted exams where dose is matched to clinical indication); or iterative reconstruction. Report Digitally Signed by Alexia Li on 06/27/2023 03:47 PM EST Social History Type Status Start Date End Date Code Code Syst em Smoking History Never smoker (Never Smoked) 315715050 SNOMED CT Sex Male Vital Signs Vital Sign Value Unit Dixon Value Dixon Unit Date/Time Recent/Initial? Code Code System Body Mass Index 20.36 kg/m2 06/27/2023 11:51 Initial 90841 -5 LOINC Systolic Blood Pressure 127 mm[Hg] 06/27/2023 15:04 Most Recent 8480- 6 LOINC Diastolic Blood Pressure 80 mm[Hg] 06/27/2023 15:04 Most Recent 8462- 4 LOINC Systolic Blood Pressure 162 mm[Hg] 06/27/2023 11:51 Initial 8480- 6 LOINC Diastolic Blood Pressure 94 mm[Hg] 06/27/2023 11:51 Initial 8462- 4 LOINC Body Surface Area 1.67 m2 06/27/2023 11:51 Initial 3140- 1 LOINC Height 170.180 0 cm 67.00 in 06/27/2023 11:51 Initial 8302- 2 LOINC O2 Saturation 98 % 2022 15:04 Most Recent 05573 -5 LOINC O2 Saturation 94 % 2022 11:51 Initial 74831 -5 LOINC Pulse 61.0 /min 06/27/2023 15:04 Most Recent 8867- 4 LOINC Pulse 72.0 /min 06/27/2023 11:51 Initial 8867- 4 LOINC Respiration 18 /min 06/27/20 15:04 Most Recent 9279- 1 LOINC Respiration 14 /min 06/27/20 11:51 Initial 9279- 1 LOINC Temperature 36.1 Kimberly 97.0 F 06/27/20 15:04 Most Recent 8310- 5 LOINC Temperature 35.6 Kimberly 96.1 F 06/27/20 11:51 Initial 8310- 5 LOINC Weight 58.97 kg 130.00 lbs 06/27/2023 11:51 Initial 91817 -7 [facility] Medications Medication Start Date End Date Route Frequency Dose Code Code System Medication Instructions Home Meds Aspirin 81MG Oral Tablet, Enteric Coated 06/24/2023 Unknown ORAL DAILY WITH FOOD 81 MILLIGRAMS 980110 RxNorm TAKE 81 MILLIGRAMS ORAL DAILY WITH FOOD Benazepril 10MG Oral Tablet 06/24/2023 Unknown ORAL DAILY 10 MILLIGRAMS 537835 RxNorm TAKE 10 MILLIGRAMS ORAL DAILY amLODIPine Besylate 5MG Oral Tablet 06/24/2023 Unknown ORAL DAILY 5 MILLIGRAMS 321467 RxNorm TAKE 5 MILLIGRAMS ORAL DAILY predniSONE 5MG Oral Tablet 06/24/2023 Unknown ORAL 5 MILLIGRAMS 986186 RxNorm TAKE 5 MILLIGRAMS ORAL Assessment You [...] Date Status Code Code System HYPERTENSION active 29101891 SNOMED- CT WEAKNESS OF RIGHT HAND active 06027724234211684 SNOMED-CT TRANSIENT ISCHEMIC ATTACK (DISORDER) active 887184940 SNOMED-CT DEGENERATIVE DISC DISEASE 06/23/2023 resolved 72436009 SNOMED-CT POLYMYALGIA RHEUMATICA 06/23/2023 resolved 91432053 SNOMED-CT Allergies and Adverse Reactions Allergy Substance Reaction Severity Start Date Concern Status Co de Code System No Known Drug Allergies Active 199991750 SNOMED-CT Plan of Treatment EEG 07/14/2023 LAB DRAW 15MIN 05/20/2023 MRA HEAD W/O CONTRAST 09/16/2022 MRI C SPINE W/O CONTRAST 09/16/2022 MRI BRAIN W/O CONTRAST 09/16/2022 Encounters Encounter Diagnosis Start Date Code Code Sys tem Left upper quadrant pain 06/27/2023 942952692 [facility] MED-CT Personal Care Team Section Performer Name Performer Role Active Date Inactive Da te
--- OUTSIDE RECORDS SUMMARY | 2024-08-03 13:52 | XMS_ITS ---
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 Name Role Phone AJIT VELIZ Attending Unavailable DEV Anderson Primary Unavailable Social History Type Status Start Date End Date Code Code Syst em Smoking History Never smoker (Never Smoked) 158566786 SNOMED CT Sex Male Medications Medication Start Date End Date Route Frequency Dose Code Code System Medication Instructions Home Meds Aspirin 81MG Oral Tablet, Enteric Coated 06/24/2023 Unknown ORAL DAILY WITH FOOD 81 MILLIGRAMS [id number] RxNorm TAKE 81 MILLIGRAMS ORAL DAILY WITH FOOD Benazepril 10MG Oral Tablet 06/24/2023 Unknown ORAL DAILY 10 MILLIGRAMS [id number] RxNorm TAKE 10 MILLIGRAMS ORAL DAILY amLODIPine Besylate 5MG Oral Tablet 06/24/2023 Unknown ORAL DAILY 5 MILLIGRAMS [id number] RxNorm TAKE 5 MILLIGRAMS ORAL DAILY predniSONE 5MG Oral Tablet 06/24/2023 Unknown ORAL 5 MILLIGRAMS [id number] RxNorm TAKE 5 MILLIGRAMS ORAL Assessment You [...] Date Status Code Code System HYPERTENSION active 88202451 SNOMED- CT WEAKNESS OF RIGHT HAND active 47905538626619802 SNOMED-CT TRANSIENT ISCHEMIC ATTACK (DISORDER) active 387575476 SNOMED-CT DEGENERATIVE DISC DISEASE 06/23/2023 resolved 88406092 SNOMED-CT POLYMYALGIA RHEUMATICA 06/23/2023 resolved [id number] SNOMED-CT Allergies and Adverse Reactions Allergy Substance Reaction Severity Start Date Concern Status Co de Code System No Known Drug Allergies Active 924340117 SNOMED-CT Plan of Treatment EEG 07/14/2023 LAB DRAW 15MIN 05/20/2023 MRA HEAD W/O CONTRAST 09/16/2022 MRI C SPINE W/O CONTRAST 09/16/2022 MRI BRAIN W/O CONTRAST 09/16/2022 Encounters Encounter Diagnosis Start Date Code Code Sys tem Other symptoms and signs inv olving the musculoskeletal system 07/06/2023 SNOMED-CT Personal Care Team Section Performer Name Performer Role Active Date Inactive Da te
--- OUTSIDE RECORDS SUMMARY | 2024-08-03 13:52 | XMS_ITS ---
Author Organization Unknown Address [address] [place] [phone] Phone Care Team Providers Care Addiction Social Worker Name Role Phone LUIS FELIPE AGUAYO Registered Nurse Unavailable REE CORONA Registered Nurse Unavailable BRYAN PAEZ Registered Nurse Unavailable Unavailable Xwatchlist Unavailable ELIANE Rendon Attending Unavailable URVASHI [facility] Unavailable DEV Anderson Primary Unavailable CAROLINA Perez Secondary Unavailable UNLISTED PROVIDER - REQUESTED Xhandoff Un available Results CBC W/ DIFFERENTIAL* - Colle ct Date/Time: 06/23/2023 07:50 [facility] ID: [id number] [address] [place] [address], [address] LOINC: 06331-4 Test Value Unit Reference Range Code Code System Flag WBC 5.95 th/cmm L=5.00 H=10.00 6690-2 LOINC NEUT % 60.4 % L=40.0 H=80.0 LYMPH % 26.1 % L=10.0 H=50.0 MONO % 10.8 % L=2.0 H=12.0 87929-2 LOINC EOS % 1.7 % L=0.0 H=8.0 BASO % 0.8 % L=0.0 H=3.0 IG % 0.2 % L=0.0 H=1.1 2514-8 LOINC NRBC % 0.0 % L=0.0 H=0.0 01278-8 LOINC NEUT abs count 3.6 th/cmm L=1.6 H=8.4 751-8 LOINC LYMPH abs count 1.6 th/cmm L=1.5 H=4.0 731-0 LOINC MONO abs count 0.6 th/cmm L=0.2 H=1.0 742-7 LOINC EOS abs count 0.1 th/cmm L=0.0 H=0.5 711-2 LOINC BASO abs count 0.1 th/cmm L=0.0 H=0.2 704-7 LOINC IG abs count 0.0 th/cmm L=0.0 H=0.1 61803-7 LOINC NRBC abs count 0.0 mil/cmm L=0.0 H=0.0 82128-7 LOINC RBC 5.04 mil/cmm L=4.30 H=6.20 789-8 LOINC HEMOGLOBIN 16.2 gm/dL L=13.0 H=17.0 718-7 LOINC HEMATOCRIT 48 % L=45 H=52 4544-3 LOINC MCV 95 fL L=82 H=92 787-2 LOINC H MCH 32.1 pg L=27.0 H=31.0 785-6 LOINC H MCHC 33.8 % L=32.0 H=36.0 786-4 LOINC RDW-SD 47.6 fL L=39.0 H=49.0 788-0 LOINC PLATELET COUNT 269 th/cmm L=150 H=450 777-3 LOINC BASIC METABOLIC PANEL (BMP) - Collect Date/Time: 06/23/2023 07:50 [facility] ID: [id number] [address] [place] [address], 56 LOINC: 20800-4 Test Value Unit Reference Range Code Code System Flag GLUCOSE 109 mg/dL L=70 H=116 2345-7 LOINC BUN 18 mg/dL L=6 H=25 3094-0 LOINC CREATININE 0.81 mg/dL L=0.67 H=1.17 2160-0 LOINC SODIUM SERUM 138 mmol/L L=136 H=145 2951-2 LOINC POTASSIUM SERUM 3.5 mmol/L L=3.4 H=5.2 2823-3 LOINC CHLORIDE SERUM 100 mmol/L L=96 H=110 2075-0 LOINC CARBON DIOXIDE (CO2) 31 mmol/L L=22 H=34 2027-9 LOINC ANION GAP 7.4 mmol/L 90999-8 LOINC CALCIUM SERUM 9.1 mg/dL L=8.2 H=10.2 29069-3 LOINC AGE 77 years eGFR (non-Afr.Amer.) 93 mL/min 89220-2 LOINC eGFR (Afr-Tongan) 112 mL/min 70666-[address] ANGIOGRAPHY HEAD NECK WWO 3D* - Completed: 06/23/2023 08:52 LOINC: [facility] [place], [place] [address] PACS SENIOR WEB DEVELOPER REPORT Patient Name: BARBY FLORENTINO MRN: Sex: : Age: [id number] M 1945 77 Account: Accession: Admit: StayType: [id number] 06/23/2023 E/R Ordered: Order ID: Submitted: Ordering Provider: 06/23/2023 07:56 [id number] HUGO RYAN Completed: Technologist: Resulted: 06/23/2023 08:52 SLG 06/23/2023 09:15 Study Description: CT ANGIOGRAPHY HEAD NECK WWO 3D* Study Reason: [place] Rt Upper Extre Technique: Images obtained of the head from the base of the skull to the vertex prior to IV contrast administration. Images were then performed following IV contrast from the aortic arch to the vertex. Axial, coronal and sagittal reconstructions performed. Additional axial, coronal and sagittal MIP reconstructions were performed of the head and neck. FINDINGS: CT Head W/O: Ventricles and Extra axial spaces: Normal in size and morphology for the patient's age. Hemorrhage: None. Cerebral parenchyma: No acute infarct or mass. Midline shift: None. Brainstem/Cerebellum: Normal. Calvarium: Normal. Visualized Paranasal sinuses/Mastoids: Clear. Soft Tissues: Unremarkable. CTA Neck W: Common Carotid: Right: No dissection, occlusion or significant stenosis. Left: No dissection, occlusion or significant stenosis. External Carotid: Right: No occlusion or significant stenosis. Left: No occlusion or significant stenosis. Internal Carotid: Right: No dissection, occlusion or significant stenosis. Left: No dissection, occlusion or significant stenosis. Vertebral Artery: Right: No dissection, occlusion or significant stenosis. Left: No dissection, occlusion or significant stenosis. Lung Apices: Normal. Bones: Unremarkable for age. Soft Tissues: Normal. CTA Brain W: Internal Carotid Arteries: Petrous: Normal. Cavernous: Normal. Cerebral: Normal. Anterior Cerebral Arteries: Right: No aneurysm, occlusion or significant stenosis. Left: No aneurysm, occlusion or significant stenosis. Middle Cerebral Arteries: Right: No aneurysm, occlusion or significant stenosis. Left: No aneurysm, occlusion or significant stenosis. Posterior cerebral Arteries: Right: No aneurysm, occlusion or significant stenosis. Left: No aneurysm, occlusion or significant stenosis. Vertebral Arteries: Right: No aneurysm, occlusion or significant stenosis. Left: No aneurysm, occlusion or significant stenosis. Basilar Artery: No aneurysm, occlusion or significant stenosis. IMPRESSION: 1. Normal CTA examination of the [place] of [place]. 2. Unremarkable noncontrast CT Head. 3. Normal CTA examination of the neck. All CT scans at this facility use at least one of these dose optimization techniques: automated exposure control; mA and/or kV adjustment per patient size (includes targeted exams where dose is matched to clinical indication); or iterative reconstruction. Report Digitally Signed by Alexia Li on 06/23/2023 09:15 AM EST MR BRAIN WO CONTRAST - Compl eted: 06/23/2023 11:09 INC: [facility] [place], [place] [address] PACS SENIOR WE[employer] DEVELOPER REPORT Patient Name: BARBY FLORENTINO MRN: Sex: : Age: [id number] M 1945 77 Account: Accession: Admit: StayType: [id number] 06/23/2023 E/R Ordered: Order ID: Submitted: Ordering Provider: 06/23/2023 07:56 [id number] AZHUGO MORELAND Completed: Technologist: Resulted: 06/23/2023 11:09 WXP 06/23/2023 11:28 Study Description: MR BRAIN WO CONTRAST Study Reason: Arm/Leg Weakness Technique: Multiplanar multipulse sequences. COMPARISON: 16 September 2022 FINDINGS: VENTRICLES AND EXTRA AXIAL SPACES: Normal in size and morphology for the patient's age. MIDLINE SHIFT: None. CEREBRAL PARENCHYMA: No focus of restricted diffusion to suggest acute infarct. No space-occupying lesion identified. No significant white matter changes. No significant atrophy. HEMORRHAGE: None. BRAINSTEM/CEREBELLUM: Normal. CALVARIUM: Normal. VISUALIZED PARANASAL SINUSES: Mild mucosal thickening ethmoid and maxillary sinuses. MASTOIDS:Clear. [place] OF [place]: Normal flow void. PITUITARY GLAND: Unremarkable. Orbits: Unremarkable as visualized. Soft tissues: Unremarkable as visualized. IMPRESSION: Negative MRI of the brain.. Report Digitally Signed by Alexia Li on 06/23/2023 11:28 AM EST Social History Type Status Start Date End Date Code Code Syst em Smoking History Never smoker (Never Smoked) 146867601 SNOMED CT Sex Male Vital Signs Vital Sign Value Unit Barney Value Barney Unit Date/Time Recent/Initial? Code Code System Body Mass Index 21.14 kg/m2 06/23/2023 08:01 Initial 12137 -5 LO[facility] Systolic Blood Pressure 127 mm[Hg] 06/24/2023 07:18 Most Recent 8480- 6 [facility] Diastolic Blood Pressure 78 mm[Hg] 06/24/2023 07:18 Most Recent 8462- 4 [facility] Systolic Blood Pressure 144 mm[Hg] 06/23/2023 08:01 [facility] 8480- [facility] Diastolic Blood Pressure 77 mm[Hg] 06/23/2023 08:01 Initial 8462- 4 INC Body Surface Area 1.70 m2 06/23/2023 08:01 Initial 3140- 1 INC Height 170.180 0 cm 67.00 in 06/23/2023 08:01 Initial 8302- 2 INC O2 Saturation 98 % 2022 07:18 Most Recent 16147 -5 INC O2 Saturation 97 % 2022 08:01 Initial 98291 -5 INC Fraction of Inspired Oxygen 21 % 06/23/2023 15:36 Initial 3150- 0 INC Pulse 61.0 /min 06/24/2023 07:18 Most Recent 8867- 4 INC Pulse 71.0 /min 06/23/2023 08:01 Initial 8867- 4 INC Respiration 18 /min 06/24/20 07:18 Most Recent 9279- 1 INC Respiration 23 /min 06/23/20 23 08:01 Initial 9279- 1 INC Temperature 36.8 Kimberly 98.2 F 06/24/20 07:18 Most Recent 8310- 5 [facility] Temperature 35.3 Kimberly 95.5 F 06/23/20 23 08:01 Initial 8310- 5 INC Weight 58.51 kg 129.00 lbs 06/23/2023 15:36 Most Recent 97855 -7 [facility] Weight 61.23 kg 135.00 lbs 06/23/2023 08:01 Initial 64189 -7 [facility] Medications Medication Start Date End Date Route Frequency Dose Code Code System Medication Instructions Home Meds Aspirin 81MG Oral Tablet, Enteric Coated 06/24/2023 Unknown ORAL DAILY WITH FOOD 81 MILLIGRAMS 588001 RxNorm TAKE 81 MILLIGRAMS ORAL DAILY WITH FOOD Benazepril 10MG Oral Tablet 06/24/2023 Unknown ORAL DAILY 10 MILLIGRAMS 422560 RxNorm TAKE 10 MILLIGRAMS ORAL DAILY amLODIPine Besylate 5MG Oral Tablet 06/24/2023 Unknown ORAL DAILY 5 MILLIGRAMS 577735 RxNorm TAKE 5 MILLIGRAMS ORAL DAILY predniSONE 5MG Oral Tablet 06/24/2023 Unknown ORAL 5 MILLIGRAMS 371896 RxNorm TAKE 5 MILLIGRAMS ORAL Assessment You had the following problems:HYPERTENSIONWEAKNESS OF RIGHT HANDTRANSIENT ISCHEMIC ATTACK (DISORDER) Hospital Discharge Instructions Should you have any questions prior to discharge, please contact a member of your healthcare team. If you have left the hospital and have any questions, please contact your primary care physician. Reason For Referral No Data Found Procedures Procedure Name Date Status Code Code Syste m Herniorrhaphy completed 35893890 SNOMEDCT Tonsillectomy completed 938653358 SNOMEDCT Problems Problem Start Date Resolved Date Status Code Code System HYPERTENSION active 99307247 SNOMED- CT WEAKNESS OF RIGHT HAND active 56887892712397711 SNOMED-CT TRANSIENT ISCHEMIC ATTACK (DISORDER) active 316658693 SNOMED-CT DEGENERATIVE DISC DISEASE 06/23/2023 resolved 74266745 SNOMED-CT POLYMYALGIA RHEUMATICA 06/23/2023 resolved 02381580 SNOMED-CT Allergies and Adverse Reactions Allergy Substance Reaction Severity Start Date Concern Status Co de Code System No Known Drug Allergies Active 635572226 SNOMED-CT Plan of Treatment EEG 07/14/2023 LAB DRAW 15MIN 05/20/2023 MRA HEAD W/O CONTRAST 09/16/2022 MRI C SPINE W/O CONTRAST 09/16/2022 MRI BRAIN W/O CONTRAST 09/16/2022 Encounters Encounter Diagnosis Start Date Code Code Sys tem Weakness 06/23/2023 SNOMED-CT Personal Care Team Section Performer Name Performer Role Active Date Inactive Da te Discharge Summary Notes [facility] 06/24/2023 16:56 All Demographics Patient Name Age Sex Visit Number Admission Date/Time Attending Physician Date of Service Room and Bed Emergency Contact BARBY FLORENTINO 1945 77 years Male [id number] 06/23/2023 12:01 STANISLAV DEL RIO 06/23/2023 [id number] COURTNEY RICHARDSON - [id number] 06/24/2023 16:37 Discharge Date: 06/24/2023 Admission Diagnosis: Transient right hand weakness Discharge Diagnosis: 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 Espinal, Neurology Procedures: none Recommendations: 1. Follow up with Dr. 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 That morning around 6 AM as the patient was going about his morning routine he noted weakness in his right hand. He notes the weakness was especially prominent in his first 3 digits. He also mentioned that his hand seemed to deviate medially as he was trying to miner pick a quart jar of water. Over the next hour it had only improved slightly and he came to the emergency department. He denies any other focal deficits, confusion, fevers, recent illness, arm pain or paresthesias, chest pain, palpitations, shortness of breath. In the emergency department the patient was afebrile, with a normal heart rate, stable blood pressure, and normal O2 sats. CBC and BMP were reassuring. A head CT, CTA head and neck, and MRI brain showed no acute findings. EKG showed normal sinus rhythm. In the emergency department the patient's right hand weakness completely resolved and he was asymptomatic when evaluated by the provider. Dr. Espinal of Neurology was consulted, and she recommended aspirin but holding off on clopidogrel as the patient is on daily steroids. In the emergency department the patient received aspirin 81 mg chewed, and he was admitted for overnight telemetry and monitoring. Hospital Course Dr. Florentino had an uneventful night. He had no recurrence of his symptoms, and denied any other associated complaints. Telemetry overnight was benign. Laboratory work was not repeated this morning. An echocardiogram showed a normal left ventricular size and ejection fraction. Diastolic indices were normal for age. There were no regional wall motion abnormalities. Right ventricular size and function also were normal. Left atrial size was normal and the intra-atrial septum was intact with no evidence for an ASD. Right atrial size was normal. There was trace tricuspid regurgitation. Dr. Espinal saw the patient this afternoon, and questioned whether he might not of had a small focal seizure with attendant Adán's paralysis. She recommended continuation of the low-dose aspirin as antiplatelet therapy, and plan to arrange for 30-day industrial garage servicer. She will be following up with him as an outpatient on 07/06. The patient was anxious to return home, and will be discharged today with neurology follow-up and plans to see his PCP in the next 2 to 4 weeks. Labs last 72 hours Test Results Units Reference Range Collected GLUCOSE 109 mg/dL L=70 H=116 06/23/2023 07:50 BUN 18 mg/dL L=6 H=25 06/23/2023 07:50 CREATININE 0.81 mg/dL L=0.67 H=1.17 06/23/2023 07:50 SODIUM SERUM 138 mmol/L L=136 H=145 06/23/2023 07:50 POTASSIUM SERUM 3.5 mmol/L L=3.4 H=5.2 06/23/2023 07:50 CHLORIDE SERUM 100 mmol/L L=96 H=110 06/23/2023 07:50 CARBON DIOXIDE (CO2) 31 mmol/L L=22 H=34 06/23/2023 07:50 ANION GAP 7.4 mmol/L 06/23/2023 07:50 CALCIUM SERUM 9.1 mg/dL L=8.2 H=10.2 06/23/2023 07:50 WBC 5.95 th/cmm L=5.00 H=10.00 06/23/2023 07:50 HEMOGLOBIN 16.2 gm/dL L=13.0 H=17.0 06/23/2023 07:50 HEMATOCRIT 48 % L=45 H=52 06/23/2023 07:50 PLATELET COUNT 269 th/cmm L=150 H=450 06/23/2023 07:50 Physical Exam: General: This is a thin, fit-appearing man in no acute distress. HEENT: EOMI, PERRL, anicteric sclerae; oropharynx without lesions or exudates. Neck: Supple; no adenopathy or thyromegaly. Back: Nontender. Chest: Clear to auscultation. Heart: Regular, without murmurs, rubs, or gallops. Abdomen: Bowel sounds were active, and the abdomen soft, nondistended, and nontender. There is no palpable organomegaly or masses. Extremities: Without peripheral edema or joint swelling. Skin: Without rashes or lesions. Neurologic: Dr. Florentino is alert and oriented to person, place, and time. Cranial nerves II through XII are grossly intact. Motor exam was 5/5 throughout. DTRs were symmetric. Cerebellar testing was negative. Gait was normal. History and Physical Notes [facility] 06/23/2023 19:56 All Demographics Patient Name Age Sex Visit Number Admission Date/Time Attending Physician Date of Service Room and Bed Emergency Contact BARBY FLORENTINO 1945 77 years Male [id number] 06/23/2023 07:38 TJ FIGUEROA 06/23/2023 8A COURTNEY RICHARDSON - [id number] 06/23/2023 12:06 Admission Date: 06/23/2023 Reason for Admission: Probable TIA Code Status: DNR/DNI Attending Physician: Navi Del Rio MD Primary Care Physician: DEV Anderson Referring Physician: Hugo Willis MD History of Present Illness Chief Complaint: RIGHT HAND WEAKNESS Barby Florentino is an active 77-year-old male with a medical history significant for hypertension, degenerative disc disease, polymyalgia rheumatica on prednisone taper started in March, presenting with right hand weakness x3 hours. This morning around 6 AM of the patient was going about his morning routine he noted weakness in his right hand. He notes the weakness was especially prominent in his first 3 digits. Over the next hour it had only improved slightly and he came to the emergency department. He denies any other focal deficits, confusion, fevers, recent illness, arm pain or paresthesias, chest pain, palpitations, shortness of breath. In the emergency department the patient was afebrile, heart rate in the 70s, blood pressure stable, O2 sats in the 90s on room air. CBC and BMP reassuring. CT head, CTA head and neck, MRI brain with no acute findings. EKG shows normal sinus rhythm. In the emergency department the patient's right hand weakness completely resolved and he is currently asymptomatic. Neurology Dr. Espinal was consulted who recommended aspirin, hold off on Plavix as the patient is on daily steroids. She will see the patient tomorrow. In the emergency department patient is given aspirin 81 mg chewed. Patient is referred to the hospital service for further evaluation and treatment. Past Medical/Surgical/Family/Social History Medical History: All Problems Problem Comment Hypertension Degenerative disc disease Polymyalgia rheumatica Surgical History: Herniorrhaphy, Tonsillectomy, Family History: FH: Myocardial infarction at greater than 60, FATHER Polymyalgia Rheumatica, MOTHER Family history of prostate cancer, MATERNAL UNCLE Family history of prostate cancer, MATERNAL UNCLE Polymyalgia Rheumatica, PATERNAL AUNT Social History: Lives at home with his dog. 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 Endorses occasional glass of wine in the evening. Never smoker, denies recreational drug use. Allergy List No Known Drug Allergies, medication Current Medications: Home Meds: Dose and Freq Medication Dosage Frequency predniSONE 5MG Oral Tablet Taper-Currently 2.5mg daily alternating with 5mg daily DAILY Benazepril 10MG Oral Tablet 10 MILLIGRAMS DAILY amLODIPine Besylate 5MG Oral Tablet 5 MILLIGRAMS DAILY REVIEW OF SYSTEMS: CONSTITUTIONAL: Denies fever EYES: Denies changes in vision ENT: Denies sore throat, congestion RESPIRATORY: Denies shortness of breath HEART: Denies palpitations or chest pain ABDOMEN: Denies nausea, vomiting, diarrhea GENITOURINARY : Denies dysuria, hematuria EXTREMITIES: Denies edema SKIN: Denies rash or abrasion. NEURO: Denies headache, dizziness, syncope PHYSCIAL EXAM Most Recent Vital Signs BP (mm/Hg) BP Position/Site MAP (mm/Hg) Heart Rate Resp Temp (C) Temp (F) SPO2% O2 Device Pain Score Height (cm) Height (in) Weight (kg) Weight (lbs/ozs) 139/80 100 73 23 35.3 Tympanic 95.5 Tympanic 99 % Room Air 21% 0 170.2 cm 67 in 61.23 kg 135 lbs GENERAL: Well appearing and well nourished. In no apparent distress. SKIN: Intact, no rashes. No jaundice. [place] and warm with good turgor. HEENT: Normocephalic, atraumatic. Pupils are equal, round and reactive to light. Extraocular muscles are grossly intact. Sclerae are without injection or icterus. Mucous membranes pink and moist. NECK: Supple, without lesions, or adenopathy. No JVD is seen. Trachea midline. CHEST/LUNGS: Clear to auscultation bilaterally. No rales, rhonchi, or wheezes are appreciated. HEART: Regular rate and rhythm. No murmurs, rubs, clicks or gallops. ABDOMEN: Soft, non-tender and non-distended. No hepatosplenomegaly or hernias or masses noted. MUSCULOSKELETAL: Grossly normal gait and station. No misalignment, asymmetry, decreased range of motion, or instability appreciated. EXTREMITIES: No peripheral edema appreciated. No amputations, deformities, or signs of trauma. NEUROLOGIC: The patient is oriented x3. Muscle strength grossly intact in the upper and lower extremities bilaterally. Sensation to pain, touch, and proprioception are grossly normal. No focal deficits. No pronator drift, heel to ramsey normal, finger to nose normal. PSYCHIATRIC: Mood and affect are appropriate. Memory is intact with good short- and long-term memory recall. Pre-Admission Studies: Lab Results: Last Week Test Results Units Reference Range Collected GLUCOSE 109 mg/dL L=70 H=116 06/23/2023 07:50 BUN 18 mg/dL L=6 H=25 06/23/2023 07:50 CREATININE 0.81 mg/dL L=0.67 H=1.17 06/23/2023 07:50 SODIUM SERUM 138 mmol/L L=136 H=145 06/23/2023 07:50 POTASSIUM SERUM 3.5 mmol/L L=3.4 H=5.2 06/23/2023 07:50 CHLORIDE SERUM 100 mmol/L L=96 H=110 06/23/2023 07:50 CARBON DIOXIDE (CO2) 31 mmol/L L=22 H=34 06/23/2023 07:50 ANION GAP 7.4 mmol/L 06/23/2023 07:50 CALCIUM SERUM 9.1 mg/dL L=8.2 H=10.2 06/23/2023 07:50 AGE 77 years 06/23/2023 07:50 eGFR (non-Afr.Amer.) 93 mL/min 06/23/2023 07:50 eGFR (Afr-Tongan) 112 mL/min 06/23/2023 07:50 WBC 5.95 th/cmm L=5.00 H=10.00 06/23/2023 07:50 NEUT % 60.4 % L=40.0 H=80.0 06/23/2023 07:50 LYMPH % 26.1 % L=10.0 H=50.0 06/23/2023 07:50 MONO % 10.8 % L=2.0 H=12.0 06/23/2023 07:50 EOS % 1.7 % L=0.0 H=8.0 06/23/2023 07:50 BASO % 0.8 % L=0.0 H=3.0 06/23/2023 07:50 IG % 0.2 % L=0.0 H=1.1 06/23/2023 07:50 NRBC % 0 % L=0.0 H=0.0 06/23/2023 07:50 NEUT abs count 3.6 th/cmm L=1.6 H=8.4 06/23/2023 07:50 LYMPH abs count 1.6 th/cmm L=1.5 H=4.0 06/23/2023 07:50 MONO abs count 0.6 th/cmm L=0.2 H=1.0 06/23/2023 07:50 EOS abs count 0.1 th/cmm L=0.0 H=0.5 06/23/2023 07:50 BASO abs count 0.1 th/cmm L=0.0 H=0.2 06/23/2023 07:50 IG abs count 0 th/cmm L=0.0 H=0.1 06/23/2023 07:50 NRBC abs count 0 mil/cmm L=0.0 H=0.0 06/23/2023 07:50 RBC 5.04 mil/cmm L=4.30 H=6.20 06/23/2023 07:50 HEMOGLOBIN 16.2 gm/dL L=13.0 H=17.0 06/23/2023 07:50 HEMATOCRIT 48 % L=45 H=52 06/23/2023 07:50 MCV 95 H fL L=82 H=92 06/23/2023 07:50 MCH 32.1 H pg L=27.0 H=31.0 06/23/2023 07:50 MCHC 33.8 % L=32.0 H=36.0 06/23/2023 07:50 RDW-SD 47.6 fL L=39.0 H=49.0 06/23/2023 07:50 PLATELET COUNT 269 th/cmm L=150 H=450 06/23/2023 07:50 Imaging: CT Head 06/23/23: No acute intracranial findings. Unremarkable non-contrast CT head. CT Angiogram Head/Neck 06/23/23: No occlusions, aneurysm, or significant stenosis. Normal CTA examination of head and neck. MRI Brain 06/23/23: Negative MRI of the brain. Assessment/Plan Problem List Hypertension Weakness of right hand Transient ischemic attack (disorder) Probable TIA Right hand weakness, now resolved. No acute or abnormal findings on CT head or CTA head/neck (see above) Admit on telemetry overnight Start aspirin 81mg daily, hold off on plavix as patient is on steroids Echocardiogram tomorrow Neurology Dr. Espinal will see tomorrow Continue home medications as prescribed with exceptions and additions noted above. Estimated length of stay less than two midnights for treatment of TIA. Ordered Meds List ASPIRIN TABLET E.C.: 81MG, DAILY WITH FOOD ONDANSETRON INJ SDV: 4MG/2ML, PRN Q4H ACETAMINOPHEN TABLET: 325MG, PRN Q4H CALCIUM CARBONATE TAB CHEWABLE UD: 500MG, PRN Q2H ACETAMINOPHEN INJ IVPB: 1000MG/100ML, PRN Q6H MILK OF MAGNESIA SUSP UD: 2400MG/30ML, PRN DAILY BISACODYL SUPPOSITORY: 10MG, PRN DAILY SODIUM CHLORIDE 0.9% FLUSH 10ML SYRINGE, Q8H POLYETHYLENE GLYCOL PACKET 3350:17GM, PRN DAILY SENNA CONC TABLET: 8.6MG, PRN DAILY
--- OUTSIDE RECORDS SUMMARY | 2024-08-03 13:52 | XMS_ITS ---
Author Organization Unknown Address [address] [place] [address] [phone] Phone Care Team Providers Care Graphite Mill Operator Name Role Phone DEV Anderson Attending Unavailable Results CBC W/ DIFFERENTIAL* - Colle ct Date/Time: 05/20/2023 10:15 [facility] ID: [id number] [address] [place] [address], 5666 LOINC: 68825-2 Test Value Unit Reference Range Code Code System Flag WBC 6.15 th/cmm L=5.00 H=10.00 6690-2 LOINC NEUT % 66.1 % L=40.0 H=80.0 LYMPH % 20.3 % L=10.0 H=50.0 MONO % 10.4 % L=2.0 H=12.0 90710-9 LOINC EOS % 2.1 % L=0.0 H=8.0 BASO % 0.8 % L=0.0 H=3.0 IG % 0.3 % L=0.0 H=1.1 2514-8 LOINC NRBC % 0.0 % L=0.0 H=0.0 29425-1 LOINC NEUT abs count 4.1 th/cmm L=1.6 H=8.4 751-8 LOINC LYMPH abs count 1.3 th/cmm L=1.5 H=4.0 731-0 LOINC L MONO abs count 0.6 th/cmm L=0.2 H=1.0 742-7 LOINC EOS abs count 0.1 th/cmm L=0.0 H=0.5 711-2 LOINC BASO abs count 0.1 th/cmm L=0.0 H=0.2 704-7 LOINC IG abs count 0.0 th/cmm L=0.0 H=0.1 52475-0 LOINC NRBC abs count 0.0 mil/cmm L=0.0 H=0.0 01546-1 LOINC RBC 4.85 mil/cmm L=4.30 H=6.20 789-8 LOINC HEMOGLOBIN 14.8 gm/dL L=13.0 H=17.0 718-7 LOINC HEMATOCRIT 47 % L=45 H=52 4544-3 LOINC MCV 96 fL L=82 H=92 787-2 LOINC H MCH 30.5 pg L=27.0 H=31.0 785-6 LOINC MCHC 31.8 % L=32.0 H=36.0 786-4 LOINC L RDW-SD 51.8 fL L=39.0 H=49.0 788-0 LOINC H PLATELET COUNT 283 th/cmm L=150 H=450 777-3 LOINC PSA DIAG PROSTATE SPECIFIC A NTIGEN * - Collect Date/Time: 05/20/2023 10:15 [facility] ID: [id number] [address] [place] [address], 5661 LOINC: 2857-1 Test Value Unit Reference Range Code Code System Flag PSA 7.06 ng/mL L=0.00 H=6.50 2857-1 LOINC H C REACTIVE PROTEIN HIGH SENS ITIVITY* - Collect Date/Time: 05/20/2023 10:15 [facility] ID: [id number] [address] [place] [address], 5661 LOINC: 80137-0 Test Value Unit Reference Range Code Code System Flag CRP-HIGH SENS. 1.31 mg/L L=0.00 H=3.00 92285-2 LOINC CRP-HIGH SENS 0.13 mg/dL L=0.00 H=0.30 96336-0 LOINC Social History Type Status Start Date End Date Code Code Syst em Smoking History Never smoker (Never Smoked) 452334214 SNOMED CT Sex Male Medications Medication Start Date End Date Route Frequency Dose Code Code System Medication Instructions Home Meds Robaxin 500MG Oral Tablet 07/10/2022 06/23/2023 ORAL DAILY 1 TABLET RxNorm TAKE 1 TABLET ORAL DAILY every 6 hours for muscle spasms HYDROcodone bitartrate-ac etaminophen 5MG-325MG Oral Tablet 07/10/2022 06/23/2023 ORAL NEEDED EVERY 6 HOURS 1 TABLET 420755 RxNorm TAKE 1 TABLET ORAL NEEDED EVERY 6 HOURS-if taking hydrocodone , take 2 hours before or after. predniSONE 20MG Oral Tablet 07/10/2022 06/23/2023 ORAL DAILY 2 TABLET [id number] RxNorm TAKE 2 TABLET ORAL DAILY starting 07/11/2022 for the next 4 days. Aspirin 81MG Oral Tablet, Enteric Coated 06/24/2023 Unknown ORAL DAILY WITH FOOD 81 MILLIGRAMS 914968 RxNorm TAKE 81 MILLIGRAMS ORAL DAILY WITH FOOD Benazepril 10MG Oral Tablet 06/24/2023 Unknown ORAL DAILY 10 MILLIGRAMS 701713 RxNorm TAKE 10 MILLIGRAMS ORAL DAILY amLODIPine Besylate 5MG Oral Tablet 06/24/2023 Unknown ORAL DAILY 5 MILLIGRAMS 256329 RxNorm TAKE 5 MILLIGRAMS ORAL DAILY predniSONE 5MG Oral Tablet 06/24/2023 Unknown ORAL 5 MILLIGRAMS 621853 RxNorm TAKE 5 MILLIGRAMS ORAL Assessment You [...] Date Status Code Code System HYPERTENSION active 05400013 SNOMED- CT WEAKNESS OF RIGHT HAND active 32892787835962677 SNOMED-CT TRANSIENT ISCHEMIC ATTACK (DISORDER) active 972462854 SNOMED-CT DEGENERATIVE DISC DISEASE 06/23/2023 resolved 75875159 SNOMED-CT 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
--- OUTSIDE RECORDS SUMMARY | 2024-08-03 13:53 | XMS_ITS ---
Author Organization Unknown Address [address] [place] [address] [phone] Phone Care Team Providers Care Pharmaceutical Plant Operator Name Role Phone STACY ANTONIO Perez Attending Unavailable DEV Anderson Primary Unavailable Social History Type Status Start Date End Date Code Code Syst em Smoking History Never smoker (Never Smoked) 242117526 SNOMED CT Sex Male Medications Medication Start Date End Date Route Frequency Dose Code Code System Medication Instructions Home Meds Aspirin 81MG Oral Tablet, Enteric Coated 06/24/2023 Unknown ORAL DAILY WITH FOOD 81 MILLIGRAMS 694389 RxNorm TAKE 81 MILLIGRAMS ORAL DAILY WITH FOOD Benazepril 10MG Oral Tablet 06/24/2023 Unknown ORAL DAILY 10 MILLIGRAMS 211563 RxNorm TAKE 10 MILLIGRAMS ORAL DAILY amLODIPine Besylate 5MG Oral Tablet 06/24/2023 Unknown ORAL DAILY 5 MILLIGRAMS 713376 RxNorm TAKE 5 MILLIGRAMS ORAL DAILY predniSONE 5MG Oral Tablet 06/24/2023 Unknown ORAL 5 MILLIGRAMS 324196 RxNorm TAKE 5 MILLIGRAMS ORAL Assessment You [...] Date Status Code Code System HYPERTENSION active 18721486 SNOMED- CT WEAKNESS OF RIGHT HAND active 70905102903572148 SNOMED-CT TRANSIENT ISCHEMIC ATTACK (DISORDER) active 234124821 SNOMED-CT DEGENERATIVE DISC DISEASE 06/23/2023 resolved 56615331 SNOMED-CT POLYMYALGIA RHEUMATICA 06/23/2023 resolved 75842781 SNOMED-CT Allergies and Adverse Reactions Allergy Substance Reaction Severity Start Date Concern Status Co de Code System No Known Drug Allergies Active 547295706 SNOMED-CT Plan of Treatment EEG 07/14/2023 LAB DRAW 15MIN 05/20/2023 MRA HEAD W/O CONTRAST 09/16/2022 MRI C SPINE W/O CONTRAST 09/16/2022 MRI BRAIN W/O CONTRAST 09/16/2022 Encounters Encounter Diagnosis Start Date Code Code Sys tem Hematuria, unspecified 08/06/2023 SNOME D-CT Personal Care Team Section Performer Name Performer Role Active Date Inactive Da wagner
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
--- OUTSIDE RECORDS SUMMARY | 2024-08-03 13:54 | XMS_ITS | Clinical Summary ---
Author Organization [facility] [place] [address] Care Team Providers Care Active Directory Engineer Name Role Phone Andre Cary MD Primary Care Provider [phone] Allergies No known active allergies Medications No known medications Active Problems No known active problems Social History Tobacco Use Types Packs/Day Years Used Date Smoking Tobacco: Never Smokeless Tobacco: Never Sex and Gender Information Value Date Recorded Sex Assigned at Not on file Gender Identity Not on file Sexual Orientation Not on file Last Filed Vital Signs Vital Sign Reading Time Taken Comments Blood Pressure - - Pulse - - Temperature - - Respiratory Rate - - Oxygen Saturation - - Inhaled Oxygen Concentration - - Weight 65.3 kg (144 lb) 04/27/2018 4:10 PM EDT Height 172.7 cm (5' 8) 04/27/2018 4:10 PM EDT Body Mass Index 21.9 04/27/2018 4:10 PM EDT Plan of Treatment Health Maintenance Due Date Last Done Comments Hepatitis C Screening 1963 Tetanus/Diphtheria/Pertussis Vaccines (1 - Tdap) 09/21 Pneumoccocal Vaccine: 65+ (1 of 1 - PCV) 1997 Zoster vaccine (1 of 2) 1997 Advance Directive 2002 RSV Vaccine (1 - 1-dose 75+ series) 2022 Covid-19 Vaccine ( - season) 2024 Influenza (Flu) vaccine (1 o f 1 - Influenza standard series) 04/09/2024 Care Teams Active Directory Engineer Relationship Specialty Start Date End Date Andre Cary MD [address] [place] [address] PCP - General Family Medicine 03/17/18
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
--- OUTSIDE RECORDS SUMMARY | 2024-08-03 13:54 | XMS_ITS ---
Author Organization Unknown Address [address] [place] [address] [phone] Phone Care Team Providers Care Thermostatic Controls Supervisor Name Role Phone LALO Kim Attending Unavailable DEV Anderson Primary Unavailable Social History Type Status Start Date End Date Code Code Syst em Smoking History Never smoker (Never Smoked) 901019832 SNOMED CT Sex Male Medications Medication Start Date End Date Route Frequency Dose Code Code System Medication Instructions Home Meds Aspirin 81MG Oral Tablet, Enteric Coated 06/24/2023 Unknown ORAL DAILY WITH FOOD 81 MILLIGRAMS 490937 RxNorm TAKE 81 MILLIGRAMS ORAL DAILY WITH FOOD Benazepril 10MG Oral Tablet 06/24/2023 Unknown ORAL DAILY 10 MILLIGRAMS 475146 RxNorm TAKE 10 MILLIGRAMS ORAL DAILY amLODIPine Besylate 5MG Oral Tablet 06/24/2023 Unknown ORAL DAILY 5 MILLIGRAMS 913995 RxNorm TAKE 5 MILLIGRAMS ORAL DAILY predniSONE 5MG Oral Tablet 06/24/2023 Unknown ORAL 5 MILLIGRAMS 435147 RxNorm TAKE 5 MILLIGRAMS ORAL Assessment You [...] Date Status Code Code System HYPERTENSION active 21491754 SNOMED- CT WEAKNESS OF RIGHT HAND active 89575305997117966 SNOMED-CT TRANSIENT ISCHEMIC ATTACK (DISORDER) active 626304029 SNOMED-CT DEGENERATIVE DISC DISEASE 06/23/2023 resolved 83442366 SNOMED-CT 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
--- OUTSIDE RECORDS SUMMARY | 2024-08-03 13:54 | XMS_ITS ---
Author Organization Unknown Address [address] [place] [address] [phone] Phone Care Team Providers Care Media Planner / Buyer Name Role Phone CARLOS Jaramillo Attending Unavailable DEV Anderson Primary Unavailable Social History Type Status Start Date End Date Code Code Syst em Smoking History Never smoker (Never Smoked) 386190673 SNOMED CT Sex Male Medications Medication Start Date End Date Route Frequency Dose Code Code System Medication Instructions Home Meds Aspirin 81MG Oral Tablet, Enteric Coated 06/24/2023 Unknown ORAL DAILY WITH FOOD 81 MILLIGRAMS 681321 RxNorm TAKE 81 MILLIGRAMS ORAL DAILY WITH FOOD Benazepril 10MG Oral Tablet 06/24/2023 Unknown ORAL DAILY 10 MILLIGRAMS 010627 RxNorm TAKE 10 MILLIGRAMS ORAL DAILY amLODIPine Besylate 5MG Oral Tablet 06/24/2023 Unknown ORAL DAILY 5 MILLIGRAMS 483478 RxNorm TAKE 5 MILLIGRAMS ORAL DAILY predniSONE 5MG Oral Tablet 06/24/2023 Unknown ORAL 5 MILLIGRAMS 299171 RxNorm TAKE 5 MILLIGRAMS ORAL Assessment You [...] Name Date Status Code Code Syste m Colsc Flx w/Rmvl Of Tumor Po lyp Lesion Snare Tq 10/28/2023 completed 56393 CPT Problems Problem Start Date Resolved Date Status Code Code System HYPERTENSION active 10684129 SNOMED- CT WEAKNESS OF RIGHT HAND active 28077012296463880 SNOMED-CT TRANSIENT ISCHEMIC ATTACK (DISORDER) active 251670035 SNOMED-CT DEGENERATIVE DISC DISEASE 06/23/2023 resolved 29365879 SNOMED-CT 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
[2024-08-03 21:01] LABS: Anion Gap 3.9 mmol/L (3-11); BUN 18 mg/dL (7-18); CO2 32.1 mmol/L (21.0-32.0); CREATININE 0.9 mg/dL (0.70-1.30); Calcium 9.3 mg/dL (8.5-10.1); Chloride 105 mmol/L (98-107); Estimated GFR 88.51 (mL/min/1.73m2); Glucose 123 mg/dL (74-106); Sodium 141 mmol/L (136-145)
== END 2024-08-03 13:49 | disposition home or self-care (01) ==
LOC: NCHCN 13:48
PROVIDERS: PCP Family Medicine; Visit Provider Family Medicine
DX: I10 Essential (primary) hypertension (principal)
CPT/HCPCS: 80048

== ENCOUNTER 2024-09-26 16:44 | Outpatient (REF) | payer MEDICARE, SELFPAY ==
[2024-09-26 21:25] LABS: Abs Immature Grans 0.01 10^3/uL (0.0-0.06); Absolute Basophil Count 0.04 10^3/uL (0.0-0.2); Absolute Eosinophil Count 0.06 10^3/uL (0.0-0.7); Absolute Lymphocyte Count 1.09 10^3/uL (1.2-3.4); Absolute Monocyte Count 0.41 10^3/uL (0.1-0.8); Absolute Neutrophil Count 2.79 10^3/uL (1.2-6.7); Basophils % 0.9 %; Eosinophils % 1.4 %; HCT 43.6 % (40.0-50.0); HGB 14.6 g/dL (13.5-17.5); Immature Grans % 0.2 %; Lymphocytes % 24.8 %; MCH 31.4 pg (27.0-33.0); MCHC 33.5 % (32.0-36.0); MCV 94 fL (80-95); MPV 9.9 fL (8.0-11.0); Monocytes % 9.3 %; Neutrophils % 63.4 %; Platelet Count 213 10^3/uL (130-400); RBC 4.65 10^6/uL (4.36-5.78); RDW 12.6 % (11.8-14.1); RDW-SD 43.3 fL
[2024-09-26 21:31] LABS: Anion Gap 2.5 mmol/L (3-11); BUN 18 mg/dL (7-18); CO2 33.5 mmol/L (21.0-32.0); CREATININE 0.9 mg/dL (0.70-1.30); Calcium 9.3 mg/dL (8.5-10.1); Chloride 104 mmol/L (98-107); Estimated GFR 87.96 (mL/min/1.73m2); Glucose 129 mg/dL (74-106); Sodium 140 mmol/L (136-145)
== END 2024-09-26 16:45 | disposition home or self-care (01) ==
LOC: NCHCN 16:44
PROVIDERS: PCP Family Medicine; Visit Provider Physician Assistant
DX: K62.5 Hemorrhage of anus and rectum (principal)
CPT/HCPCS: 80048; 85025